=== PATIENT | female | born 2000 | race Caucasian/White ===

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

== ENCOUNTER → 2019-06-18 | Outpatient (REF) | payer OTHER | LOC: M SFHCLERA 09:37 | PROVIDERS: ATTEND Physician Assistant | DX: R30.0 Dysuria (principal) | CPT/HCPCS: 81002; 81025; 87088; 87186; G0463 ==

== ENCOUNTER → 2019-08-05 | Outpatient (REF) | payer OTHER ==
[2019-08-05 18:22] LABS: CHLAMYDIA DNA AMPLIFICATION NEGATIVE (NEGATIVE); GC DNA AMPLIFICATION NEGATIVE (NEGATIVE)
== END ==
LOC: M SFHCLERA 12:14
PROVIDERS: ATTEND Physician Assistant
DX: R30.0 Dysuria (principal); N89.8 Other specified noninflammatory disorders of vagina
CPT/HCPCS: 81002; 81025; 87086; 87661; G0463

== ENCOUNTER 2020-01-10 11:41 | Emergency (ER) | payer OTHER ==
[~2020-01-10] VITALS: Ht 165.1 cm; Wt 81.0 kg
[2020-01-10 11:42] VITALS: BP 138/84
[2020-01-10] MEDS ORDERED: KEFL500C17 PO (12:28)
== END 2020-01-10 12:43 | disposition home or self-care (01) ==
LOC: M ED 11:41
DX: J06.9 Acute upper respiratory infection, unspecified (principal); Z11.59 Encounter for screening for other viral diseases; Z20.828 Contact with and (suspected) exposure to other viral communicable diseases
CPT/HCPCS: 87486; 87581; 87633; 87798; 99283; C9803; U0003

== ENCOUNTER → 2021-01-10 | Outpatient (REF) | payer OTHER ==
[~2021-01-10] MED LIST: KEFL500C17 PO
== END ==
LOC: M WUC 15:57
PROVIDERS: ATTEND Physician Assistant
DX: R30.0 Dysuria (principal)

== ENCOUNTER 2021-03-13 09:34 | Emergency (ER) | payer OTHER ==
[~2021-03-13] VITALS: Ht 165.1 cm; Wt 76.0 kg
[2021-03-13] MEDS ORDERED: ONDA4TAB6 PO (09:41)
[2021-03-13] MEDS ORDERED: OMEP-221 PO (09:41)
[2021-03-13] MEDS ORDERED: NS 1,000 ML IV ONE (11:40)
[2021-03-13 12:15] LABS: BASO % 0.3 % (0.0-1.0); EOS # 0.1 10^3/uL (0.0-0.5); EOS % 0.4 % (0.0-3.0); HEMATOCRIT 39.2 % (36.0-47.0); HEMOGLOBIN 13.5 g/dl (12.0-15.5); LYMPH # 1.8 10^3/uL (1.5-5.0); LYMPH % 13.1 % (24.0-44.0); MEAN CORPUSCULAR HGB CONC 34.4 g/dl (32.0-36.5); MEAN CORPUSCULAR VOLUME 84.3 fl (80.0-96.0); MONO # 0.6 10^3/uL (0.0-0.8); MONO % 4.5 % (2.0-8.0); NEUTROPHILS # 11.3 10^3/uL (1.5-8.5); NEUTROPHILS % 81.4 % (36.0-66.0); PLATELET COUNT, AUTOMATED 305 10^3/uL (150-450); RED BLOOD COUNT 4.65 10^6/uL (4.00-5.40); WHITE BLOOD COUNT 13.9 10^3/uL (4.0-10.0)
--- NOTE | 2021-03-13 12:29 | REP ---
INDICATION: pelvic pain. COMPARISON: None. TECHNIQUE: Transabdominal obstetric sonography. FINDINGS: Scanning through the gravid uterus and urine filled bladder demonstrate a single living intrauterine gestation. The crown-rump length of the embryonic pole is 52 mm. This corresponds with a gestational age estimate of 11 weeks 6 days. heart rate is recorded at 170 beats per minute. No extra uterine abnormality is observed. IMPRESSION: Single living intrauterine gestation at 11 weeks 6 days by crown-rump length. ELYSIA by sonography 26 September 2021. No complication is identified <Electronically signed by Froilan Benton > 03/13/21 [id number]
[2021-03-13 12:44] LABS: ALBUMIN 4.2 GM/DL (3.2-5.2); ALT/SGPT 27 U/L (12-78); BILIRUBIN,DIRECT 0.2 MG/DL (0.0-0.2); BILIRUBIN,TOTAL 0.8 MG/DL (0.2-1.0); BLOOD UREA NITROGEN 4 MG/DL (7-18); CALCIUM LEVEL 9.5 MG/DL (8.5-10.1); CARBON DIOXIDE LEVEL 25 MEQ/L (21-32); CHLORIDE LEVEL 105 MEQ/L (98-107); CREATININE FOR GFR 0.53 MG/DL (0.55-1.30); GLOMERULAR FILTRATION RATE > 60.0 (>60); GLUCOSE, FASTING 74 MG/DL (70-100); LIPASE 68 U/L (73-393); POTASSIUM SERUM 4.1 MEQ/L (3.5-5.1); SODIUM LEVEL 138 MEQ/L (136-145); TOTAL PROTEIN 8.3 GM/DL (6.4-8.2)
[2021-03-13] MEDS ORDERED: cefTRIAXone SOD 1 GM in D5W MINI-BAG PLUS 50 ML IV ONE (13:30)
[2021-03-13] MEDS ORDERED: ACETAMINOPHEN 325 MG TAB PO ONE (13:30)
[2021-03-13] MEDS ORDERED: MACR100C43 PO (14:29)
[2021-03-13 14:34] VITALS: BP 118/65
[2021-03-13 14:47] LABS: GC DNA AMPLIFICATION NEGATIVE (NEGATIVE)
== END 2021-03-13 14:40 | disposition home or self-care (01) ==
LOC: M ED 09:34
DX: O23.41 Unspecified infection of urinary tract in pregnancy, first trimester (principal); O26.91 Pregnancy related conditions, unspecified, first trimester; R10.2 Pelvic and perineal pain; Z3A.11 11 weeks gestation of pregnancy; Z79.899 Other long term (current) drug therapy
CPT/HCPCS: 76801; 80048; 80076; 81001; 83690; 85025; 87088; 87186; 87210; 87661; 96361; 96365; 99284; J0696

== ENCOUNTER 2021-05-02 12:02 | Emergency (ER) | payer OTHER ==
[~2021-05-02] VITALS: Ht 165.1 cm; Wt 74.4 kg
[~2021-05-02 12:02] MED LIST changes: +MACR100C43 PO; +OMEP-221 PO; +ONDA4TAB6 PO
[2021-05-02] MEDS ORDERED: MULTTAB20 PO (12:42)
[2021-05-02 14:09] LABS: BASO % 0.3 % (0.0-1.0); EOS # 0.2 10^3/uL (0.0-0.5); EOS % 2.4 % (0.0-3.0); HEMATOCRIT 34.6 % (36.0-47.0); HEMOGLOBIN 11.9 g/dl (12.0-15.5); LYMPH # 1.5 10^3/uL (1.5-5.0); MEAN CORPUSCULAR HGB CONC 34.4 g/dl (32.0-36.5); MEAN CORPUSCULAR VOLUME 87.2 fl (80.0-96.0); MONO # 0.5 10^3/uL (0.0-0.8); MONO % 6.8 % (2.0-8.0); NEUTROPHILS # 4.9 10^3/uL (1.5-8.5); NEUTROPHILS % 69.2 % (36.0-66.0); PLATELET COUNT, AUTOMATED 251 10^3/uL (150-450); RED BLOOD COUNT 3.97 10^6/uL (4.00-5.40); WHITE BLOOD COUNT 7.1 10^3/uL (4.0-10.0)
[2021-05-02 14:44] LABS: CK-MB VALUE MASS < 1.0 NG/ML (<3.6); CPK CREATINE PHOSPHOKINASE 36 U/L (26-192); MB/CK RELATIVE INDEX 2.78 (< OR =4); TROPONIN I < 0.02 NG/ML (< 0.10)
[2021-05-02 15:07] LABS: APPEARANCE, URINE CLEAR (CLEAR); BACTERIA, URINE AUTO NEGATIVE (NEGATIVE); BILIRUBIN, URINE AUTO NEGATIVE (NEGATIVE); BLOOD, URINE BLOOD NEGATIVE (NEGATIVE); COLOR, URINE STRAW (YELLOW); GLUCOSE, URINE (UA) AUTO NEGATIVE (NEGATIVE); KETONE, URINE AUTO NEGATIVE (NEGATIVE); LEUKOCYTE ESTERASE, URINE AUTO NEGATIVE (NEGATIVE); NITRITE, URINE AUTO NEGATIVE (NEGATIVE); PROTEIN, URINE AUTO NEGATIVE (NEGATIVE); RBC, URINE AUTO 0 /HPF (0-3); SPECIFIC GRAVITY URINE AUTO 1.004 (1.002-1.035); SQUAMOUS EPITHELIAL CELL UR AU 0 /HPF (0-6); UROBILINOGEN, URINE AUTO 0.2 mg/dL (0.0-2.0); WBC, URINE AUTO 1 /HPF (0-3)
[2021-05-02 15:59] LABS: ALBUMIN 3.5 GM/DL (3.2-5.2); ALT/SGPT 27 U/L (12-78); BILIRUBIN,DIRECT 0.1 MG/DL (0.0-0.2); BILIRUBIN,TOTAL 0.4 MG/DL (0.2-1.0); MAGNESIUM LEVEL 1.8 MG/DL (1.8-2.4); TOTAL PROTEIN 7.2 GM/DL (6.4-8.2); URIC ACID 2.9 MG/DL (2.6-6.0)
[2021-05-02 17:37] VITALS: BP 141/68
--- NOTE | 2021-05-02 19:44 | ECGEPIP ---
[facility] - ED Test Date: 2021-05-02 Pat Name: IVETH EDOUARD Department: Room: - Gender: Female Crisis Mental Health Therapist: RHETT : 2000 Requested By: ELDA Nunez PA-C Order Number: [id number] Reading MD: Fouzia Sebastian Measurements Intervals [place] Rate: 94 P: 32 [place]: 150 QRS: 31 QRSD: 90 T: 24 QT: 376 QTc: 470 Interpretive Statements Normal sinus rhythm Possible Left atrial enlargement RSR' or QR pattern in V1 suggests right ventricular conduction delay Nonspecific ST T wave changes No prior ECG for comparison Electronically Signed on 05-02-2021 19:44:19 EDT by Fouzia Sebastian
== END 2021-05-02 17:40 | disposition home or self-care (01) ==
LOC: M ED 12:02
DX: O99.419 Diseases of the circulatory system complicating pregnancy, unspecified trimester (principal); Z3A.18 18 weeks gestation of pregnancy; R00.2 Palpitations

== ENCOUNTER 2021-07-12 01:22 | Inpatient (IN) | payer OTHER ==
[~2021-07-12] VITALS: Ht 165.1 cm; Wt 86.7 kg
[2021-07-12] VITALS (22 sets, daily range): BP systolic 116–166; BP diastolic 59–97
[~2021-07-12 01:22] MED LIST changes: +MULTTAB20 PO
[2021-07-12] MEDS ORDERED: BENA25CA4 PO (01:59)
[2021-07-12] MEDS ORDERED: HOME MED LIST COMPLETE! XX SCH (02:00)
[2021-07-12 02:10] LABS: HEMATOCRIT 31.2 % (36.0-47.0); HEMOGLOBIN 10.6 g/dl (12.0-15.5); MEAN CORPUSCULAR HEMOGLOBIN 29.9 pg (27.0-33.0); MEAN CORPUSCULAR VOLUME 87.9 fl (80.0-96.0); PLATELET COUNT, AUTOMATED 292 10^3/uL (150-450); RED BLOOD COUNT 3.55 10^6/uL (4.00-5.40); WHITE BLOOD COUNT 15.1 10^3/uL (4.0-10.0)
[2021-07-12] MEDS ORDERED: LR 1,000 ML IV SCH ×2 (02:15→23:15)
[2021-07-12] MEDS ORDERED: MORPHINE 2 MG/ML 1ML VIAL (J2270) IV ONE (02:15)
[2021-07-12] MEDS ORDERED: LR 1,000 ML IV ONE (02:15)
[2021-07-12 02:48] LABS: ALBUMIN 3.2 GM/DL (3.2-5.2); ALT/SGPT 16 U/L (12-78); BILIRUBIN,TOTAL 0.2 MG/DL (0.2-1.0); BLOOD UREA NITROGEN 9 MG/DL (7-18); CALCIUM LEVEL 9.6 MG/DL (8.5-10.1); CARBON DIOXIDE LEVEL 27 MEQ/L (21-32); CHLORIDE LEVEL 108 MEQ/L (98-107); CREATININE FOR GFR 0.67 MG/DL (0.55-1.30); GLOMERULAR FILTRATION RATE > 60.0 (>60); GLUCOSE, FASTING 92 MG/DL (70-100); POTASSIUM SERUM 4.1 MEQ/L (3.5-5.1); SODIUM LEVEL 141 MEQ/L (136-145); TOTAL PROTEIN 7.1 GM/DL (6.4-8.2)
[2021-07-12] MEDS ORDERED: cefTRIAXone SOD 1 GM in D5W MINI-BAG PLUS 50 ML IV SCH (03:00)
--- NOTE | 2021-07-12 03:03 | HPEPDOC ---
Obstetrical History & Physical General Date of Admission 07/12/2021 Primary Care Physician: HETAL MALDONADO DO History of Present Illness 20yo G1 at 28+6 with history of frequent UTIs on macrobid prophylaxis presents for worsening flank pain, chills and dysuria. Endorses subjective fever. Denies hematuria. Denies headaches, vision changes, shortness of breath, right upper quadrant or epigastric pain. Care Care: Good Care Dating Final EDC: Sep 28, 2021 Final EDC by: 1st trimester (US) Antepartum Course Height (inches): 65 Pre- weight (lbs.): 176 Admission Weight (lbs.): 190 Change in Weight (lbs.): 14 Past Medical History Past Obstetrical History : Past Obstetrical History: Primgravida Past Medical History Medical History frequent UTI 3-4/year outside of , currently on macrobid prophylaxis GERD exercise-induced asthma Surgical History: Other (wisdom teeth extraction) Family History Family History father: hypertension MGM: skin cancer, stroke PGM: lung CA PGF: alcoholism Social History Marital Status: Family situation: Spouse/partner home Psychosocial History: Other (depression/anxiety with history of cutting) * Smoker: non-smoker Alcohol: Denies Drugs: denies Abuse Violence Screening Have you been hit/kicked/slapp: No Have you been sexually assault: No Imunizations Tdap status: current Allergies Coded Allergies: No Known Allergies (Unverified , 01/10/20) Medications Scheduled Diphenhydramine HCl (Benadryl) 25 Mg Capsule, 2 CAP PO QPM Nitrofurantoin Monohyd/M-Cryst (Macrobid 100 mg Capsule) 100 Mg Capsule, 100 MG PO BID Omeprazole (Omeprazole) 40 Mg Capsule.dr, 1 CAP PO DAILY No122/Iron/Folic Acid ( Multi Tablet) 1 Each Tablet, 1 TAB PO DAILY Physical Examination Physical Examination GENERAL: Alert and oriented times three. Grimacing in pain, moving around in the bed. ABDOMEN: Gravid and non-tender to touch. MSK: right sided CVA tenderness HEART RATE: tachycardic LUNGS: Clear to auscultation (CTA). EXTREMITIES: No edema. Vital Signs/I&O Vital Signs Date Time Temp Pulse Resp B/P (MAP) Pulse Ox O2 Delivery O2 Flow Rate FiO2 07/12/21 01:49 118 166/95 (118) 07/12/21 01:47 98.2 18 Laboratory Data 24H LABS Laboratory Tests 2 07/12/21 01:45: Urine Color YELLOW, Urine Appearance HAZY, Urine pH 7.0, Urine Specific [place] 1.013, Urine Protein 2+H, Urine Glucose (UA) NEGATIVE, Urine Ketones NEGATIVE, Urine Blood NEGATIVE, Urine Nitrite NEGATIVE, Urine Bilirubin NEGATIVE, Urine Urobilinogen 0.2, Urine Leukocyte Esterase TRACEH, Urine WBC (Auto) 17H, Urine RBC (Auto) 4H, Urine Hyaline Casts (Auto) 0, Urine Bacteria (Auto) NEGATIVE, U rine Squamous Epithelial Cells 4, Urine Amorphous Sediment SMALLH, Urine Mucus (Auto) SMALL, Urine Sperm (Auto) 07/12/21 02:04: Nucleated Red Blood Cells % (auto) 0.0 CBC/BMP Laboratory Tests 07/12/21 02:04 Microbiology Microbiology 07/12/21 Urine Culture, Received Pending Pertinent Laboratoy Data Blood Type: B+ RBC Antibody Screen: Negative HIV: Negative Hepatitis B: Negative Rapid Plasma Reagin: Nonreactive Rubella: Immune Varicella: Immune Chlamydia/Gonorrhea: Negative Quad Screen Test: Negative Cystic Fibrosis: Negative Glucose Tolerance Test: 175 Anatomy Ultrasound Ultrasound Date: May 11, 2021 Placenta Location: Anterior Normal Anatomy: Yes Placenta Previa: No Steroid Therapy Steroid Therapy: No Tocometer Contractions: No Multi-drug resistant Organism: No history of MDRO Assessment/Plan Assessment Pamela Yanez is a 20-year-old G1 at 28+6 weeks by 9-week ultrasound. Presents to Labor and Delivery for chills, flank pain and dysuria with history of frequent UTIs on macrobid prophylaxis. Right costovertebral tenderness on exam, WBC 15 and pyuria on urinalysis. No blood on urinalysis, patient denies hematuria. Creatinine 0.67 on CMP. Renal ultrasound pending. Severe range pressures on admission, however she was writhing in the bed; blood pressure 120s/60s after pain control achieved. No signs or symptoms of preeclampsia. Plan -ceftriaxone 1g q24h until afebrile for 24 hours, she will then need a course of oral antibiotics, likely 14 days -monitor urine output hourly, maintain >30mg/kg/hr -q4h vitals -renal ultrasound pending -radiology BPP pending, if >=8 then BID NSTs -LR 1000mL bolus and then at 125mL/hr -tylenol 975mg q6h scheduled - morphine 2mg IV q4h prn for pain 7-10 -repeat labs 24 hours Labor and Delivery Counseling Counseled patient on admission and treatment with IV antibiotics, delivery not anticipated at this time. HETAL MALDONADO. DO Jul 12, 2021 02:47
[2021-07-12] MEDS ORDERED: MORPHINE 2 MG/ML 1ML VIAL (J2270) IV PRN (03:05)
--- OUTSIDE RECORDS SUMMARY | 2021-07-12 03:19 | CCD ---
Author Organization Unknown Address [address] [place] [address] Phone [phone] Care Team Providers Care Knitted Cloth Examiner Name Role Phone 238 Nurse_adult Unavailable Unavailable Allergies None recorded. Medications Name Status Start Date Stop Date fluconazole 150 mg tablet TAKE 1 TABLET BY MOUTH MAY REPEAT IN 3 5 DAYS IF NEEDED Active Not available nitrofurantoin monohydrate/macrocrystals 100 mg capsule TAKE 1 CAPSULE BY MOUTH TWICE DAILY Active Not available ondansetron HCl 4 mg tablet TAKE 1 TABLET BY MOUTH 4 TIMES DAILY NEEDED Active Not available Problems None recorded. Procedures None recorded. Results Lab Results Date Name Specimen Result Interpretation Description Value Range Status Address 06/01/2021 SARS CoV 2 RdRp Gene, QL Probe, Respiratory Specimen ABNORMAL Sars-cov-2 positive negative Final [facility] don: [address] [facility] 05/04/2021 SARS CoV 2 RdRp Gene, QL Probe, Respiratory Spec imen Nasopharyngeal Normal Sars-cov-2 negative negative Final [facility] Medical: [address] [place] [address] 02/28/2021 MMR Immunity, Serum Normal Measles Ab (IgG), Immune Status >300.00 AU/mL Final [facility]: [address], [place] Normal Mumps Virus Ab (IgG), Immune Status >300.00 AU/mL Final [facility]: [address], [place] Normal Rubella Ab (IgG), Immune Status 5.34 index Final [facility]: [address], [place] Past Encounters 06/01/2021 Exposure to SARS-CoV-2 Kaleb Huerta MD: [address] [place] [address], Ph. 05/04/2021 Exposure to SARS-CoV-2 Kaleb Huerta MD: [address] [place] [phone], Ph. 04/13/2021 Administration of SARS-CoV-2 Antigen Vaccine Kaleb Huerta MD: [address] [place] [address], Ph. 03/24/2021 Administration of SARS-CoV-2 Antigen Vaccine Kaleb Huerta MD: [address] [place] [address], Ph. 02/28/2021 Kaleb Huerta MD: [address] [place] [address], Ph. Social History None recorded. Vaccine List Vaccine Type COVID-19, mRNA, LNP-S, PF, 30 mcg/0.3 mL dose .3 mL .3 mL Plan of Care Reminders Provider Appointments None recorded. Lab None recorded. Referral None recorded. Procedures None recorded. Surgeries None recorded. Imaging None recorded. Vitals None recorded.
--- OUTSIDE RECORDS SUMMARY | 2021-07-12 03:19 | CCD ---
Author Organization Unknown Address [address] [place] [address] Phone [phone] Care Team Providers Care Quality Lab Technician Name Role Phone 238 Nurse_adult Unavailable Unavailable [...] Result Interpretation Description Value Range Status Address 05/04/2021 SARS CoV 2 RdRp Gene, QL Probe, Respiratory Spec imen Nasopharyngeal Normal Sars-cov-2 negative negative Final [facility] Medical: [address] [facility] 02/28/2021 MMR Immunity, Serum Normal Measles Ab (IgG), Immune Status >300.00 AU/mL Final [facility]: [address] [facility] Normal Mumps Virus Ab (IgG), Immune Status >300.00 AU/mL Final [facility]: [address] [facility] Normal Rubella Ab (IgG), Immune Status 5.34 index Final [facility]: [address] [facility] Past Encounters 05/04/2021 Exposure to SARS-CoV-2 Kaleb Huerta MD: [address] [place] [address], Ph. 04/13/2021 SARS-CoV-2 Vaccination Kaleb Huerta MD: [address] [place] [address], Ph. 03/24/2021 SARS-CoV-2 Vaccination Kaleb Huerta MD: [address] [place] [address], Ph. 02/28/2021 Kaleb Huerta MD: [address] [place] [phone], Ph. Social History None recorded. Vaccine List Vaccine Type COVID-19, mRNA, LNP-S, PF, 30 mcg/0.3 mL dose .3 mL .3 mL Plan of Care Reminders Provider Appointments None recorded. Lab None recorded. Referral None recorded. Procedures None recorded. Surgeries None recorded. Imaging None recorded. Vitals None recorded.
--- OUTSIDE RECORDS SUMMARY | 2021-07-12 03:19 | CCD ---
Author Author [facility] Organization [facility] Address Unknown Phone Unavailable Care Team Providers Care Replanter Name Role Phone Florencio Huerta MD Unavailable Unavailable Florencio Huerta MD Unavailable Unavailable Florencio Huerta MD Unavailable Unavailable Florencio Huerta MD Unavailable Unavailable Florencio Huerta MD Unavailable Unavailable Florencio Huerta MD Unavailable Unavailable Florencio Huerta MD Unavailable Unavailable Florencio Huerta MD Unavailable Unavailable Florencio Huerta MD Unavailable Unavailable Florencio Huerta MD Unavailable Unavailable Florencio Huerta MD Unavailable Unavailable Florencio Huerta MD Unavailable Unavailable Florencio Huerta MD Unavailable Unavailable Florencio Huerta MD Unavailable Unavailable Florencio Huerta MD Unavailable Unavailable Florencio Huerta MD Unavailable Unavailable Florencio Huerta MD Unavailable Unavailable Florencio Huerta MD Unavailable Unavailable Florencio Huerta MD Unavailable Unavailable Florencio Huerta MD Unavailable Unavailable Florencio Huerta MD Unavailable Unavailable Florencio Huerta MD Unavailable Unavailable Florencio Huerta MD Unavailable Unavailable Florencio Huerta MD Unavailable Unavailable Florencio Huerta MD Unavailable Unavailable Florencio Huerta MD Unavailable Unavailable Florencio Huerta MD Unavailable Unavailable Florencio Huerta MD Unavailable Unavailable Florencio Huerta MD Unavailable Unavailable Florencio Huerta MD Unavailable Unavailable Florencio Huerta MD Unavailable Unavailable Florencio Huerta MD Unavailable Unavailable Florencio Huerta MD Unavailable Unavailable Florencio Huerta MD Unavailable Unavailable Florencio Huerta MD Unavailable Unavailable Florencio Huerta MD Unavailable Unavailable Florencio Huerta MD Unavailable Unavailable Florencio Huerta MD Unavailable Unavailable Florencio Huerta MD Unavailable Unavailable Florencio Huerta MD Unavailable Unavailable Florencio Huerta MD Unavailable Unavailable Florencio Huerta MD Unavailable Unavailable Florencio Huerta MD Unavailable Unavailable Florencio Huerta MD Unavailable Unavailable Florencio Huerta MD Unavailable Unavailable Florencio Huerta MD Unavailable Unavailable Florencio Huerta MD Unavailable Unavailable Florencio Huerta MD Unavailable Unavailable Florencio Huerta MD Unavailable Unavailable Florencio Huerta MD Unavailable Unavailable Florencio Huerta MD Unavailable Unavailable Florencio Huerta MD Unavailable Unavailable Florencio Huerta MD Unavailable Unavailable Florencio Huerta MD Unavailable Unavailable Florencio Huerta MD Unavailable Unavailable Florencio Huerta MD Unavailable Unavailable Florencio Huerta MD Unavailable Unavailable Florencio Huerta MD Unavailable Unavailable Florencio Huerta MD Unavailable Unavailable Florencio Huerta MD Unavailable Unavailable Florencio Huerta MD Unavailable Unavailable Florencio Huerta MD Unavailable Unavailable Florencio Huerta MD Unavailable Unavailable Florencio Huerta MD Unavailable Unavailable Florencio Huerta MD Unavailable Unavailable Florencio Huerta MD Unavailable Unavailable Florencio Huerta MD Unavailable Unavailable Florencio Huerta MD Unavailable Unavailable Florencio Huerta MD Unavailable Unavailable Florencio Huerta MD Unavailable Unavailable Florencio Huerta MD Unavailable Unavailable Florencio Huerta MD Unavailable Unavailable Florencio Huerta MD Unavailable Unavailable Florencio Huerta MD Unavailable Unavailable Florencio Huerta MD Unavailable Unavailable Florencio Huerta MD Unavailable Unavailable Florencio Huerta MD Unavailable Unavailable Florencio Huerta MD Unavailable Unavailable Florencio Huerta MD Unavailable Unavailable Florencio Huerta MD Unavailable Unavailable Florencio Huerta MD Unavailable Unavailable Florencio Huerta MD Unavailable Unavailable Florencio Huerta MD Unavailable Unavailable Florencio Huerta MD Unavailable Unavailable Florencio Huerta MD Unavailable Unavailable Florencio Huerta MD Unavailable Unavailable Florencio Huerta MD Unavailable Unavailable Florencio Huerta MD Unavailable Unavailable Florencio Huerta MD Unavailable Unavailable Florencio Huerta MD Unavailable Unavailable Florencio Huerta MD Unavailable Unavailable Florencio Huerta MD Unavailable Unavailable Florencio Huerta MD Unavailable Unavailable ISABELA, JUAN PA Unavailable Unavailable ISABELA, JUAN PA Unavailable Unavailable ISABELA, JUAN PA Unavailable Unavailable ISABELA, JUAN PA Unavailable Unavailable ISABELA, JUAN PA Unavailable Unavailable ISABELA, JUAN PA Unavailable Unavailable ISABELA, JUAN PA Unavailable Unavailable ISABELA, JUAN PA Unavailable Unavailable ISABELA, JUAN PA Unavailable Unavailable ISABELA, JUAN PA Unavailable Unavailable ISABELA, JUAN PA Unavailable Unavailable ISABELA, JUAN PA Unavailable Unavailable ISABELA, JUAN PA Unavailable Unavailable ISABELA, JUAN PA Unavailable Unavailable ISABELA, JUAN PA Unavailable Unavailable Pola Estrella MD Unavailable Unavailable Susan, Pola PEREZ Unavailable Unavailable Estrella, Pola PEREZ Unavailable Unavailable Estrella, Pola PEREZ Unavailable Unavailable Estrella, Pola PEREZ Unavailable Unavailable Estrella, Pola PEREZ Unavailable Unavailable SHOLA, LAURA PA Unavailable Unavailable SHOLA, LAURA PA Unavailable Unavailable SHOLA, LAURA PA Unavailable Unavailable SHOLA, LAURA PA Unavailable Unavailable SHOLA, LAURA PA Unavailable Unavailable SHOLA, LAURA PA Unavailable Unavailable SHOLA, LAURA PA Unavailable Unavailable SHOLA, LAURA PA Unavailable Unavailable SHOLA, LAURA PA Unavailable Unavailable SHOLA, LAURA PA Unavailable Unavailable SHOLA, LAURA PA Unavailable Unavailable SHOLA, LAURA PA Unavailable Unavailable SHOLA, LAURA PA Unavailable Unavailable SHOLA, LAURA PA Unavailable Unavailable SHOLA, LAURA PA Unavailable Unavailable SHOLA, LAURA PA Unavailable Unavailable SHOLA, LAURA PA Unavailable Unavailable SHOLA, LAURA PA Unavailable Unavailable SHOLA, LAURA PA Unavailable Unavailable SHOLA, LAURA PA Unavailable Unavailable SHOLA, LAURA PA Unavailable Unavailable SHOLA, LAURA PA Unavailable Unavailable SHOLA, LAURA PA Unavailable Unavailable SHOLA, LAURA PA Unavailable Unavailable SHOLA, LAURA PA Unavailable Unavailable SHOLA, LAURA PA Unavailable Unavailable SHOLA, LAURA PA Unavailable Unavailable SHOLA, LAURA PA Unavailable Unavailable SHOLA, LAURA PA Unavailable Unavailable SHOLA, LAURA PA Unavailable Unavailable SHOLA, LAURA PA Unavailable Unavailable SHOLA, LAURA PA Unavailable Unavailable SHOLA, LAURA PA Unavailable Unavailable SHOLA, LAURA PA Unavailable Unavailable SHOLA, LAURA PA Unavailable Unavailable SHOLA, LAURA PA Unavailable Unavailable ALEKS, L JULIO PA Unavailable Unavailable ALEKS, L JULIO PA Unavailable Unavailable ALEKS, L JULIO PA Unavailable Unavailable ALEKS, L JULIO PA Unavailable Unavailable ALEKS, L JULIO PA Unavailable Unavailable ALEKS, L JULIO PA Unavailable Unavailable ALEKS, L JULIO PA Unavailable Unavailable ALEKS, L JULIO PA Unavailable Unavailable ALEKS, L JULIO PA Unavailable Unavailable ALEKS, L JULIO PA Unavailable Unavailable ALEKS, L JULIO PA Unavailable Unavailable ALEKS, L JULIO PA Unavailable Unavailable ALEKS, L JULIO PA Unavailable Unavailable ALEKS, L JULIO PA Unavailable Unavailable ALEKS, L JULIO PA Unavailable Unavailable ALEKS, L JULIO PA Unavailable Unavailable ALEKS, L JULIO PA Unavailable Unavailable ALEKS, L JULIO PA Unavailable Unavailable ALEKS, L JULIO PA Unavailable Unavailable ALEKS, L JULIO PA Unavailable Unavailable ALEKS, L JULIO PA Unavailable Unavailable ALEKS, L JULIO PA Unavailable Unavailable DOYLE, [facility] Unavailable Unavailable ALEKS, L JULIO PA Unavailable Unavailable ALEKS, L JULIO PA Unavailable Unavailable ALEKS, L JULIO PA Unavailable Unavailable ALEKS, L JULIO PA Unavailable Unavailable ALEKS, L JULIO PA Unavailable Unavailable ALEKS, L JULIO PA Unavailable Unavailable ALEKS, L JULIO PA Unavailable Unavailable ALEKS, L JULIO PA Unavailable Unavailable ALEKS, L JULIO PA Unavailable Unavailable ALEKS, L JULIO PA Unavailable Unavailable ALEKS, L JULIO PA Unavailable Unavailable ALEKS, L JULIO PA Unavailable Unavailable ALEKS, L JULIO PA Unavailable Unavailable ALEKS, L JULIO PA Unavailable Unavailable ALEKS, L JULIO PA Unavailable Unavailable ALEKS, L JULIO PA Unavailable Unavailable ALEKS, L JULIO PA Unavailable Unavailable ALEKS, L JULIO PA Unavailable Unavailable ALEKS, L JULIO PA Unavailable Unavailable ALEKS, L JULIO PA Unavailable Unavailable ALEKS, L JULIO PA Unavailable Unavailable ALEKS, L JULIO PA Unavailable Unavailable Re-disclosure Warning The records that you are about to access may contain information from federally-assisted alcohol or drug abuse programs. If such information is present, then the following federally mandated warning applies: This information has been disclosed to you from records protected by federal confidentiality rules (42 CFR part 2). The federal rules prohibit you from making any further disclosure of this information unless further disclosure is expressly permitted by the written consent of the person to whom it pertains or as otherwise permitted by 42 CFR part 2. A general authorization for the release of medical or other information is NOT sufficient for this purpose. The Federal rules restrict any use of the information to criminally investigate or prosecute any alcohol or drug abuse patient.The records that you are about to access may contain highly sensitive health information, the redisclosure of which is protected by Article 27-F of the [facility] Public Health law. If you continue you may have access to information: Regarding HIV / AIDS; Provided by facilities licensed or operated by the [facility] Office of Mental Health; or Provided by the [facility] Office for People With Developmental Disabilities. If such information is present, then the following [facility] mandated warning applies: This information has been disclosed to you from confidential records which are protected by state law. State law prohibits you from making any further disclosure of this information without the specific written consent of the person to whom it pertains, or as otherwise permitted by law. Any unauthorized further disclosure in violation of state law may result in a fine or usp sentence or both. A general authorization for the release of medical or other information is NOT sufficient authorization for further disc losure. Allergies and Adverse Reactions Type Description Substance Reaction Status Data Source(s ) Allergy to substance Allergy to substance Allergy to substance [facility] ([facility]) Allergy to substance Allergy to substance Allergy to substance [facility] ([facility]) Allergy to substance Allergy to substance Allergy to substance [facility] ([facility]) Allergy to substance Allergy to substance Allergy to substance [facility] ([facility]) Allergy to substance Allergy to substance Allergy to substance [facility] ([facility]) Encounters Encounter Providers Location Date Indications Data Source(s ) Kaleb Huerta MD: [address] [place] [phone], Ph. Attender: Kaleb Huerta MD [facility] Medical 06/01/2021 12:00:00 AM EDT [facility] ([facility]) Kaleb Huerta MD: [address] [place] [phone], Ph. Attender: Kaleb Huerta MD [facility] Medical 06/01/2021 12:00:00 AM EDT [facility] ([facility]) Kaleb Huerta MD: [address] [place] [phone], Ph. Attender: Kaleb Huerta MD [facility] Medical 05/04/2021 12:00:00 AM EDT [facility] ([facility]) Kaleb Huerta MD: [address] [place] [address], Ph. Attender: Kaleb Huerta MD [facility] Medical 05/04/2021 12:00:00 AM EDT [facility] ([facility]) Kaleb Huerta MD: [address] [place] [address]3 [address], Ph. Attender: Kaleb Huerta MD [facility] Medical 05/04/2021 12:00:00 AM EDT [facility] ([facility]) Kaleb Huerta MD: [address] [place] [address], Ph. Attender: Kaleb Huerta MD [facility] Medical 05/04/2021 12:00:00 AM EDT [facility] ([facility]) Kaleb Huerta MD: [address] [place] [address], Ph. Attender: Kaleb Huerta MD [facility] Medical 04/13/2021 12:00:00 AM EDT [facility] ([facility]) Kaleb Huerta MD: [address] [place] [phone], Ph. Attender: Kaleb Huerta MD [facility] Medical 04/13/2021 12:00:00 AM EDT [facility] ([facility]) Kaleb Huerta MD: [address] [place] [address], Ph. Attender: Kaleb Huerta MD [facility] Medical 04/13/2021 12:00:00 AM EDT [facility] ([facility]) Kaleb Huerta MD: [address] [place] [address]1 504, Ph. Attender: Kaleb Huerta MD [facility] Medical 04/13/2021 12:00:00 AM EDT [facility] ([facility]) Kaleb Huerta MD: [address] [place] [address], Ph. Attender: Kaleb Huerta MD [facility] Medical 03/24/2021 12:00:00 AM EDT [facility] ([facility]) Kaleb Huerta MD: [address] [place] [address], Ph. Attender: Kaleb Huerta MD [facility] Medical 03/24/2021 12:00:00 AM EDT [facility] ([facility]) Kaleb Huerta MD: [address] [place] [address]8 [address], Ph. Attender: Kaleb Huerta MD [facility] Medical 03/24/2021 12:00:00 AM EDT [facility] ([facility]) Kaleb Huerta MD: [address] [place] [address], Ph. Attender: Kaleb Huerta MD [facility] Medical 03/24/2021 12:00:00 AM EDT [facility] ([facility]) Emergency Attender: Pola Estrella MDConsultant: CLINIC DOYLE 03/08/2021 08:51:00 PM EDT - 03/08/2021 11:06:00 PM EDT [facility] Patient discharged. Kaleb Huerta MD: [address] [place] [address], Ph. Attender: Kaleb Huerta MD [facility] Medical 02/28/2021 12:00:00 AM EDT [facility] ([facility]) Kaleb Huerta MD: [address] [place] [address], Ph. Attender: Kaleb Huerta MD [facility] Medical 02/28/2021 12:00:00 AM EDT [facility] ([facility]) Kaleb Huerta MD: [address] [place] [address]0 [address], Ph. Attender: Kaleb Huerta MD [facility] Medical 02/28/2021 12:00:00 AM EDT [facility] ([facility]) Kaleb Huerta MD: [address] [place] [address], Ph. Attender: Kaleb Huerta MD [facility] Medical 02/28/2021 12:00:00 AM EDT [facility] ([facility]) Kaleb Huerta MD: [address] [place] [address]8 [address], Ph. Attender: Kaleb Huerta MD [facility] Medical 02/28/2021 12:00:00 AM EDT [facility] ([facility]) Outpatient Attender: LAURA Parson ry 01/10/2021 11:00:00 AM EDT [facility] ([facility]) Outpatient Attender: JULIO CANALES 07/20 03:58:00 PM EST - 08/06/2020 03:58:00 PM EST [facility] Outpatient Attender: JULIO CANALES Family Practice 07/20 03:20:00 PM EST [facility] ([facility] Emergency Attender: JUAN CANALES 03/19 06:23:00 PM EDT - 03/19/2012 07:25:00 PM EDT [facility] Immunizations Vaccine Date Status Description Data Source(s) COVID-19, mRNA, LNP-S, PF, 30 mcg/0.3 mL dose 04/13/2021 02: 54:23 PM EDT completed .3 mL [facility] ([facility]) COVID-19, mRNA, LNP-S, PF, 30 mcg/0.3 mL dose 04/13/2021 02: 54:23 PM EDT completed .3 mL [facility] ([facility]) COVID-19, mRNA, LNP-S, PF, 30 mcg/0.3 mL dose 04/13/2021 02: 54:23 PM EDT completed .3 mL [facility] ([facility]) COVID-19, mRNA, LNP-S, PF, 30 mcg/0.3 mL dose 04/13/2021 02: 54:23 PM EDT completed .3 mL [facility] ([facility]) COVID-19 VACCINE Pfizer 04/13/2021 12:00:00 AM EDT completed [facility] Vaccine Series Complete: YESThis Data wa s Submitted to [facility] Via [employer]. COVID-19, mRNA, LNP-S, PF, 30 mcg/0.3 mL dose 03/24/2021 01: 47:37 PM EDT completed .3 mL [facility] ([facility]) COVID-19, mRNA, LNP-S, PF, 30 mcg/0.3 mL dose 03/24/2021 01: 47:37 PM EDT completed .3 mL [facility] ([facility]) COVID-19, mRNA, LNP-S, PF, 30 mcg/0.3 mL dose 03/24/2021 01: 47:37 PM EDT completed .3 mL [facility] ([facility]) COVID-19, mRNA, LNP-S, PF, 30 mcg/0.3 mL dose 03/24/2021 01: 47:37 PM EDT completed .3 mL [facility] ([facility]) COVID-19 VACCINE Pfizer 03/24/2021 12:00:00 AM EDT completed [employer] Vaccine Series Complete: NOThis Data was Submitted to [facility] [employer]. Medications Medication Brand Name Start Date Product Form Dose Route Admi nistrative Instructions Pharmacy Instructions Status Indications Reaction Description Data Source(s) Fluconazole 150 MG Oral Tablet [Diflucan] Diflucan 01/10/2021 1 2:00:00 AM EDT ORAL active [facility] ([facility], [facility]) Insurance Providers Payer name Policy type / Coverage type Policy ID Covered libertarian ID Covered libertarian's relationship to tobar Policy Tobar Plan Information [employer] [id number] [place] [id number] 01 [id number] [place] [id number] 18 [id number] [place] [employer] [place] UNA[place] 01 [facility] [id number] CHILD [id number] [employer] [id number] SP [id number] [employer] [id number] FA2 [id number] ANSI-Not a Secondary Insurance [id number] ANSI-Not a Secondary Insurance [id number] Problems, Conditions, and Diagnoses Code Display Name Description Problem Type Effective Dates Data Source(s) [id number] 11 weeks gestation of 11 weeks gestation of Diagnosis 03/08/2021 08:51:00 PM EDT [facility] R1030 Lower abdominal pain, unspecified Lower abdomina l pain, unspecified Diagnosis 03/08/2021 08:51:00 PM EDT [facility] [id number] Other specified related condit ions, first trimester Other specified related conditions, first trimester Diagnosis 03/08/2021 08:51:00 PM EDT [facility] [id number] Diseases of the respiratory system complicating , first trimester Diseases of the respiratory system compl icating , first trimester Diagnosis 03/08/2021 08:51:00 PM EDT [facility] [id number] Unspecified asthma, uncomplicated Unspecified as thma, uncomplicated Diagnosis 03/08/2021 08:51:00 PM EDT [facility] R197 Diarrhea, unspecified Diarrhea, unspecified Diagnosis 03/08/2021 08:51:00 PM EDT [facility] O219 Vomiting of , unspecified Vomiting of p regnancy, unspecified Diagnosis 03/08/2021 08:51:00 PM EDT [facility] Z1159 Encounter for screening for other viral diseases Encounter for screening for other viral diseases Diagnosis 08/06/2020 03:58:00 PM [facility] Surgeries/Procedures No Information Results ID Date Data Source [id number] 06/01/2021 10:50:00 AM EDT [facility]) Name Value Range Interpretation Code Description Data Deena rce(s) Supporting Document(s) sars-cov-2 positive negative Abnormal (applies to non-num kenya results) Sars-cov-2 [facility]) ID Date Data Source [id number] 06/01/2021 10:50:00 AM EDT [facility] ([facility]) Name Value Range Interpretation Code Description Data Deena rce(s) Supporting Document(s) sars-cov-2 positive negative Abnormal (applies to non-num kenya results) Sars-cov-2 [facility] ([facility]) ID Date Data Source [id number] 06/01/2021 10:34:00 AM EDT [facility] Name Value Range Interpretation Code Description Data Deena rce(s) Supporting Document(s) SARS coronavirus 2 RdRp gene [Presence] in Respiratory specimen by CABRERA with probe detection Detected [facility] This lab was ordered by [facility] and reported by [facility]. ID Date Data Source [id number] 05/04/2021 08:53:00 AM EDT [facility]) Name Value Range Interpretation Code Description Data Deena rce(s) Supporting Document(s) sars-cov-2 negative negative Sars-cov-2 [facility] ([facility]) ID Date Data Source [id number] 05/04/2021 08:53:00 AM EDT [facility]) Name Value Range Interpretation Code Description Data Deena rce(s) Supporting Document(s) sars-cov-2 negative negative Sars-cov-2 [facility] ([facility]) ID Date Data Source [id number] 05/04/2021 08:53:00 AM EDT [facility] ([facility]) Name Value Range Interpretation Code Description Data Deena rce(s) Supporting Document(s) sars-cov-2 negative negative Sars-cov-2 [facility]) ID Date Data Source [id number] 05/04/2021 08:53:00 AM EDT [facility]) Name Value Range Interpretation Code Description Data Deena rce(s) Supporting Document(s) sars-cov-2 negative negative Sars-cov-2 [facility] ([facility]) ID Date Data Source [id number] 05/04/2021 08:40:00 AM EDT [facility] Name Value Range Interpretation Code Description Data Deena rce(s) Supporting Document(s) SARS coronavirus 2 RdRp gene [Presence] in Respiratory specimen by CABRERA with probe detection Not detected [facility] This lab was ordered by [facility] and reported by [facility]. ID Date Data Source [id number] 03/08/2021 08:51:00 PM EDT [facility] 1 OrderSheet [facility] Emergency Department [address] [place] [address] Phone #: ext- [phone] 03/08/2021 20:50 Patient: IVETH LAO Sex: F : 2000 Age: 20yWEIGHT:76.2 kg (S)ALLERGIES: NKACHIEF COMPLAINT: vomiting, diarrheaDIAGNOSIS: Vomiting, DiarrheaLAB ORDERSOrder Description Priority Entered Acknowledged InitialedUrinalysis (Clean STAT 21:10 03/08/2021 21:37 Jil,Catch) Pola Estrella ; Kathe WillardBeta-HCG, Qual STAT 21:10 03/08/2021 21:37 JilUrine Pola Estrella ; Kathe Sykes.MarianoBMP STAT 21:11 03/08/2021 21:37 Susan Ley Jack ; Kathe WillardCBC w Diff STAT 21:11 03/08/2021 21:37 Susan Ley Jack ; Kathe WillardDIAGNOSTIC STUDY ORDERSOrder Description Priority Entered Acknowledged InitialedUS RENAL STAT 21:48 03/08/2021 21:50 Sorbero,COMPLETE Pola Estrella ; Compa Willard(Oxygen?(No))(IV?(No)) Reason for Study: left flank painMEDICATION/IV/DRIP/FLUID ORDERSOrder Description Priority Entered Acknowledged InitialedNS IV 1000 mL 21:10 03/08/2021 21:38 Jil,Bolus: : Bolus 1000 Pola Estrella ; Kathe R.NThuymL (X1)Zofran 4 mg IVP X 1 21:10 03/08/2021 21:38 Jil,dose: 4 mg (NOW Pola Estrella ; Kathe R.N.x1)GENERAL ORDERSOrder Description Priority Entered Acknowledged Initialed[Electronically signed by Compa Seaman R.N. (23:03/08/2021)][Electronically signed by Pola Estrella (04:25 03/09/2021)] 2 OrderSheet [facility] Emergency Department [address] [place] [address] Phone #: ext- [phone] 03/08/2021 20:50 Patient: IVETH LAO Sex: F : 2000 Age: 20y[Electronically locked by Compa Seaman R.N. (23:03/08/2021)] Name Value Range Interpretation Code Description Data Deena rce(s) Supporting Document(s) ID Date Data Source [id number] 03/08/2021 08:51:00 PM EDT [facility] 1 Medication Reconciliation Report [facility] Emergency Department [address] [place] [address] Phone #: ext- [phone] 03/08/2021 20:50 Patient: IVETH LAO Sex: F : 2000 Age: 20yWeight: 76.2 kgHeight/Length: 65 in.BMI: 28.0ALLERGIES: NKAThe patient's Home Medications are listed below:THE FOLLOWING MEDICATIONS NEED TO BE RECONCILED: Omeprazole Oral (20 mg) 1 capsule, daily Vitamins OralThe source(s) of the original Home Medication information:patientThe following Medications were given to the patient in the Emergency Department:NS [IV] IV Fluids bolus 1000 mL wide open, administered: 21:23 03/08/2021Zofran [IVP] IVP 4 mg, administered: 21:28 03/08/2021The following Medications were prescribed to the patient:Zofran 4 mg tablet Take 1 tablet four times a day as needed for 4 days -- Dispense 16 tablet. Refills: 0.Substitution permitted. Note to Pharmacy - HELP PATIENT SAVE with Rx DISCOUNT CARD: $390.24.Use: BIN:[id number], PCN:SATISH, Group:[id number], ID:[id number].Pharmacy - [facility] [id number] ; [place] [address]. . -- Pola Estrella Name Value Range Interpretation Code Description Data Deena rce(s) Supporting Document(s) ID Date Data Source [id number] 03/08/2021 08:51:00 PM EDT [facility] 1 Medication Administration Record [facility] Emergency Department [address] [place] [address] Phone #: [phone]- [phone] 03/08/2021 20:50 Patient: IVETH LAO Sex: F : 2000 Age: 20yWeight: 76.2 kgHeight/Length: 65 inBMI: 28ALLERGIES: NKA Date/Time Medication Administered Medication OrderedStart NS [IV] NS IV 1000 mL Bolus: : Bolus [id number] 03/08/2021 Dose: IV Fluids mL (X1)Kathe Ley R.N. Bolus: 1000 mL wide open---- Dispensed: 1000 mL bagStop Site: #1 right AC22:46 03/08/2021Compa parnell R.N.Given ZOFRAN [IVP] (ONDANSETRON HCL) Zofran 4 mg IVP X 1 dose: 4 mg21:28 03/08/2021 Dose: 4 mg IVP (NOW x1)Kathe Ley R.N. Site: #1 right AC Name Value Range Interpretation Code Description Data Deena rce(s) Supporting Document(s) ID Date Data Source [id number] 03/08/2021 08:51:00 PM EDT [facility] 1 General Instructions [facility] Emergency Department [address] [place] [address] Phone #: ext- [phone] 03/08/2021 20:50 Patient: IVETH LAO Sex: F : 2000 Age: 20yVomiting with nausea. Not intractable.DiarrheaINSTRUCTIONSDo not work for two days.Drink plenty of fluids.Warnings: Further evaluation is necessary.GENERAL WARNINGS: Return or contact your physician immediately if your condition worsens orchanges unexpectedly, if not improving as expected, or if other problems arise.Prescription Medications:Zofran 4 mg tablet Take 1 tablet four times a day as needed for 4 days -- Dispense 16 tablet. Refills: 0.Substitution permitted. Note to Pharmacy - HELP PATIENT SAVE with Rx DISCOUNT CARD: $390.24.Use: BIN:[id number], PCN:SATISH, Group:[id number], ID:[id number].Pharmacy - [facility] [address] ; [place] [address]. .Understanding of the discharge instructions verbalized by patient.Follow-up with: [facility] Farshad [place], , , [address], , [place], [address] Follow up in two days if not well. Call for an appointment. Reason for referral: evaluation. ADDITIONAL INFORMATIONViral Gastroenteritis (Adult) 2 General Instructions [facility] Emergency Department [address] [place] [address] Phone #: ext- [phone] 03/08/2021 20:50 Patient: IVETH LAO Sex: F : 2000 Age: 20yGastroenteritis is commonly called the "stomach flu," although it has nothing to do with influenza. It ismost often caused by a virus that affects the stomach and intestinal tract and usually lasts from 2 to 7days. Common viruses causing gastroenteritis include norovirus, rotavirus, and hepatitis A. Non- viralcauses of gastroenteritis include bacteria, parasites, and toxins.The danger from repeated vomiting or diarrhea is dehydration. This is the loss of too much fluid fromthe body. When this occurs, body fluids must be replaced. Antibiotics don't help with this illnessbecause it is usually viral. Simple home treatment will be helpful.Symptoms of viral gastroenteritis may include: Watery, loose stools Stomach pain or abdominal cramps Fever and chills Nausea and vomiting Loss of bowel control HeadacheFramingham [facility] Hospitale care 3 General Instructions [facility] Emergency Department [address] [place] [address] Phone #: ext- [phone] 03/08/2021 20:50 Patient: IVETH LAO Sex: F : 2000 Age: 20yGastroenteritis is transmitted by contact with the stool or vomit of an infected person. This can occurfrom person to person or from contact with a contaminated surface.Follow these guidelines when caring for yourself at home: If symptoms are severe, rest at home for the next 24 hours or until you are f eeling better. Wash your hands with soap and water or use alcohol-based suction plate carrier cleaner to prevent the spread of infection. Wash your hands after touching anyone who is sick. Wash your hands or use alcohol-based suction plate carrier cleaner after using the toilet and before meals. Clean the toilet after each use.Remember these tips when preparing food: People with diarrhea should not prepare or serve food to others. When preparing foods, wash your hands before and after. Wash your hands after using cutting boards, countertops, knives, or utensils that have been in contact with raw food. Dry your hands with a single use towel. Keep uncooked meats away from cooked and agita-uw-ikl foods.MedicineYou may use acetaminophen or NSAID medicines like ibuprofen or naproxen to control fever unlessanother medicine was given. If you have chronic liver or kidney disease, talk with your healthcareprovider before using these medicines. Also talk with your provider if you've had a stomach ulceror gastroin testinal bleeding. Don't give aspirin to anyone under 18 years of age who is ill with a fever.It may cause severe liver damage. Don't use NSAIDS is you are already taking one for anothercondition (like arthritis) or are on aspirin (such as for heart disease or after a stroke).If medicine for vomiting or diarrhea are prescribed, take these only as directed. Nausea and diarrheamedicines are generally OK unless you have bleeding, fever, or severe abdominal pain.DietFollow these guidelines for food: Water and liquids are important so you don't get dehydrated. Drink a small amount at a time or suck on ice chips if you are vomiting. If you eat, avoid fatty, greasy, spicy, or fried foods. Don't eat dairy if you have diarrhea. This can make diarrhea worse. 4 General Instructions [facility] Emergency Department [address] [place] [address] Phone #: [phone]- [phone] 03/08/2021 20:50 Patient: IVETH LAO [facility]#: [id number] Sex: F : 2000 Age: 20y Avoid tobacco, alcohol, and caffeine which may worsen symptoms.During the first 24 hours (the first full day), follow the diet below: Beverages. Sports drinks, soft drinks without caffeine, jonn jaya, mineral water (plain or flavored), decaffeinated tea and coffee. If you are very dehydrated, sports drinks aren't a good choice. They have too much sugar and not enough electrolytes. In this case, commercially available products called oral rehydration solutions, are best. Soups. Eat clear broth, consomm, and bouillon. Desserts. Eat gelatin, ice pops, and fruit juice bars.During the next 24 hours (the second day), you may add the following to the above: Hot cereal, plain toast, bread, rolls, and crackers Plain noodles, rice, mashed potatoes, chicken noodle or rice soup Unsweetened canned fruit (avoid pineapple), bananas Limit fat intake to less than 15 grams per day. Do this b y avoiding margarine, butter, oils, mayonnaise, sauces, gravies, fried foods, peanut butter, meat, poultry, and fish. Limit fiber and avoid raw or cooked vegetables, fresh fruits (except bananas), and bran cereals. Limit caffeine and chocolate. Don't use spices or seasonings other than salt. Limit dairy products. Avoid alcohol.During the next 24 hours: Gradually resume a normal diet as you feel better and your symptoms improve. If at any time it starts getting worse again, go back to clear liquids until you feel better.Follow-up careFollow up with your healthcare provider, or as advised. Call your provider if you don't get better [id number] hours or if diarrhea lasts more than a week. Also follow up if you are unable to keep down liquidsand get dehydrated. If a stool (diarrhea) sample was taken, call as directed for the results.Call [phone] if any of these occur: 5 General Instructions [facility] Emergency Department [address] [place] [address] Phone #: ext- [phone] 03/08/2021 20:50 Patient: IVETH LAO Sex: F : 2000 Age: 20y Trouble breathing Chest pain Confused Severe drowsiness or trouble awakening Fainting or loss of consciousness Rapid heart rate Seizure Stiff neckWhen to seek medical adviceCall your healthcare provider right away if any of these occur: Abdominal pain that gets worse Continued vomiting (unable to keep liquids down) Frequent diarrhea (more than 5 times a day) Blood in vomit or stool (black or red color) Dark urine, reduced urine output, or extreme thirst Weakness or dizziness Drowsiness Fever of 100.4F (38C) or higher, or as directed by your healthcare provider Kehinde coelho [phone] [employer]. [address] [place] [address]. All rights reserved. This information is not intended as asubstitute for professional medical care. Always follow your healthcare professional's instructions.Viral Diarrhea (Adult) 6 General Instructions [facility] Emergency Department [address] [place] [address] Phone #: ext- [phone] 03/08/2021 20:50 Patient: IVETH LAO Sex: F : 2000 Age: 20yDiarrhea caused by a virus is often called viral gastroenteritis. Many people call it the "stomach flu,"but it has nothing to do with influenza. The virus that causes diarrhea affects the stomach andintestinal tract and usually lasts from 2 to 7 days. Diarrhea is the passing of loose, watery stools 3 ormore times a day.SymptomsAlong with diarrhea, you may have these symptoms: Abdominal pain and cramping Nausea and vomiting Loss of bowel control Fever and chills Bloody stoolsThe danger from repeated diarrhea is dehydration. Dehydration is the loss of too much water andother fluids from the body without taking in enough to replace what is lost. 7 General Instructions [facility] Emergency Department [address] [place] [address] Phone #: ext- [phone] 03/08/2021 20:50 Patient: IVETH LAO Sex: F : 2000 Age: 20yAntibiotics are not effective in this illness, but there are a number of things you can do at home thatwill help.Home careFollow these home care measures: If symptoms are severe, rest at home for the next 24 hours or until you are feeling better. Wash your hands with soap and water or alcohol-based suction plate carrier cleaner to prevent the spread of infection. Wash your hands after touching anyone who is sick. Wash your hands after using the toilet and before meals. Clean the toilet after each use.Food preparation: People with diarrhea should not prepare food for others. When preparing foods, wash your hands after touching anyone who is sick. Wash your hands after using cutting boards, countertops, and knives that have been in contact with raw food. Keep uncooked meats away from cooked and usnkg-li-ado foods.Medicines: You may use acetaminophen or NSAIDS such as ibuprofen or naproxen to control fever unless another medicine was prescribed. If you have chronic liver or kidney disease or ever had a stomach ulcer or gastrointestinal bleeding, talk with your healthcare provider before using these medicines. Aspirin should never be used in anyone under 18 years of age who is ill with a fever. It may cause severe liver damage. Don't use NSAID medicines if you are already taking one for another condition (like arthritis) or are on aspirin (such as for heart disease or after a stroke). Anti-diarrhea medicine should be taken for this condition only if advised by your healthcare provider. Sometimes anti-diarrhea medicine can make your condition worse. If you have bloody diarrhea or fever, check with your healthcare provider before taking antidiarrheals.Diet: Water and clear liquids are important so you don't get dehydrated. Drink small amounts at a time, don't guzzle it down. If you are very dehydrated, sports drinks aren't a good choice. They have too much sugar and not enough electrolytes. In this case, commercially available products called oral rehydration solutions are best. Caffeine, tobacco, and alcohol can make the diarrhea, cramping, and pain worse. 8 General Instructions [facility] Emergency Department [address] [place] [address] Phone #: ext- [phone] 03/08/2021 20:50 Patient: IVETH LAO Sex: F : 2000 Age: 20y Don't force yourself to eat, especially if you have cramping, vomiting, or diarrhea. Don't eat large amounts at a time, even if you are hungry. It may make you feel worse. If you eat, avoid fatty, greasy, spicy, or fried foods. No dairy products, as they can make diarrhea worse.During the first 24 Hours (the first full day) follow the diet below: Beverages: Water, clear liquids, soft drinks without caffeine; jonn jaya, mineral water (plain or flavored), decaffeinated tea and coffee. Soups: Clear broth, consomm and bouillon Desserts: Plain gelatin, popsicles and fruit juice barsDuring the next 24 hours (the second day) you may add the following to the above if you haveimproved: Hot cereal, plain toast, bread, rolls, crackers Plain noodles, rice, mashed potatoes, chicken noodle or rice soup Unsweetened canned fruit like applesauce and bananas (avoid pineapple and citrus) Limit fat intake to less than 15 grams per day by avoiding margarine, butter, oils, mayonnaise, sauces, gravies, fried foods, peanut butter, meat, poultry and fish. Limit fiber; avoid raw or cooked vegetables, fresh fruits (except bananas) and bran cereals. Limit caffeine and chocolate. No spices or seasonings except salt.During the next 24 hours Gradually resume a normal diet, as you feel better and your symptoms improve. If at any time the diarrhea or cramping gets worse, go back to the simpler diet (above) or to clear liquids.Follow-up careFollow up with your healthcare provider, or as advised. Call if you are not improving within 24 hoursor if the diarrhea lasts more than one week. This is especially true if you are in a high-risk group. Forexample, if you are very elderly, have a weak immune system (from cancer treatment for example), oryou have inflammatory bowel disease (Crohn's or colitis).If a stool (diarrhea) sample was taken, you may call in 2 days (or as directed) for the results.When to seek medical advice 9 General Instructions [facility] Emergency Department [address] [place] [address] Phone #: ext- [phone] 03/08/2021 20:50 [id number] Sex: F : 2000 Age: 20yCall your healthcare provider right away if any of the following occur: Increasing abdominal pain or constant lower right abdominal pain Continued vomiting (unable to keep liquids down) Frequent diarrhea (more than 5 times a day) Blood in vomit or stool (black or red color) Reduced oral intake Dark urine, reduced urine output Weakness, dizziness Drowsiness Fever of 100.4F (38C) oral or higher, or as directed by your healthcare provider Kehinde Martinez 911Call 911 if any of the following occur: Trouble breathing Confused Severe drowsiness or trouble awakening Fainting or loss of consciousness Rapid heart rate Seizure Stiff neck [employer]. [address] [place] [address], [place] [address]. All rights reserved. This information is not intended as asubstitute for professional medical care. Always follow your healthcare professional's instructions. You have been given the following additional information: Gastroenteritis, Viral (Adult) Diarrhea, Viral (Adult) 10 General Instructions [facility] Emergency Department [address] [place] [address] Phone #: ext- [phone] 03/08/2021 20:50 Patient: IVETH LAO Sex: F : 2000 Age: 20yDo not work for two days.(Electronically signed by Pola Estrella 03/09/2021 04:25) Name Value Range Interpretation Code Description Data Deena rce(s) Supporting Document(s) ID Date Data Source [id number] 03/08/2021 08:51:00 PM EDT [facility] 1 Clinical Report - Nurses [facility] Emergency Department [address] [place] [address] Phone #: ext- [phone] 03/08/2021 20:50 Patient: IVETH LAO Sex: F : 2000 Age: 20yTRIAGEArrived by private vehicle. Historian: patient. Accompanied by family. ( presents with sharp abdominalpain nausea vomitomg).Triage time: 20:54 03/08/2021. Acuity: LEVEL 3.Chief Complaint: ABDOMINAL PAIN, NAUSEA, VOMITING and DIARRHEA.20:54 03/08/21. Alert. No acute distress.This started today. 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 No suspected or confirmed signs of infection present.--20:59 03/08/21 Compa Seaman R.N.20:54 03/08/21. BP: 124/74. MAP: 90. HR: 84. RR: 16. O2 saturation: 100% on room air. Temp: 98.7 F.Pain level now: 01/27. --20:59 03/08/21 Compa Seaman R.N.Weight: 76.2 kg stated. Height/Length: 65 inches Per Patient. BMI: 28. --20:53 03/08/21 Compa Seaman R.N.MedicationsOmeprazole Oral (Capsule Delayed Release 20 mg) 1 capsule, daily. --20:56 03/08/21 Compa Seaman R.N. Vitamins Oral. --20:56 03/08/21 Compa Seaman R.N.AllergiesNKA. --20:55 03/08/21 Compa Seaman R.N.PROBLEMS:Asthma. --20:56 03/08/21 Compa Seaman R.N.20:54 03/08/21. Medication/allergy information source: the patient. --20:59 03/08/21 Compa Seaman R.N.ADDITIONAL SURGERIES:Oral surgery. --20:56 03/08/21 Compa Seaman R.N.Qclfeuj72:54 03/08/21. 2 Clinical Report - Nurses [facility] Emergency Department [address] [place] [address] Phone #: ext- [phone] 03/08/2021 20:50 Patient: IVETH LAO Sex: F : 2000 Age: 20y PAST MEDICAL HX: Currently : 11 weeks. SOCIAL HX: Never smoker. No alcohol use or drug use. No recent travel. No known contact with a sick individual. She was offered HIV testing but declined and hepatitis C testing but declined. She has not traveled outside the [place] Infectious disease exposure: No infectious disease exposure. The patient was not exposed to Coronavirus. SELF HARM ASSESSMENT: Self harm assessment was performed. The patient answered "no" to the question(s) "Have you recently felt down, depressed, or hopeless?", "Do you have thoughts of harming or killing yourself?", "Do you have a plan for harming or killing yourself?" and "Have you recently had thoughts about harming or killing others?". ABUSE ASSESSMENT: No report of abuse. NUTRITIONAL RISK ASSESSMENT: The nutritional risk assessment revealed no deficiencies. FUNCTIONAL ASSESSMENT: Functional assessment: no impairments noted. LEARNING NEEDS ASSESSMENT: The learning needs assessment revealed no barriers. FALL RISK ASSESSMENT: Fall risk assessment completed. No risk factors identified. SKIN INTEGRITY ASSESSMENT: Skin integrity risk assessment completed. No skin integrity risk identified. --20:59 03/08/21 Compa Seaman R.N. FAMILY HX: No significant family medical history. --21:53 03/08/21 Pola Estrella. Assessment 20:54 03/08/21. She states feels the same. --20:59 03/08/21 Compa Seaman R.N. Interventions 20:54 03/08/21. Identification band on patient. To treatment room. --20:59 03/08/21 Compa Seaman R.N.PHYSICAL ASSESSMENTlate entry - 21:05 03/08/21. Ambulatory to room.GENERAL / NEURO / PSYCH: Alert. Oriented X 4. Appears in no acute distress.HEENT: Mucous membranes are pink.RESPIRATORY: Respirations not labored. Breath sounds within normal limits.CVS: Normal sinus rhythm noted. Capillary refill less than 2 seconds.GI / : The patient has had nausea and diarrhea. Emesis noted. Abdomen soft. Abdominaltenderness. Bowel sounds within normal limits.SKIN: Skin is warm and dry. --21:10 03/08/21 Kathe Ley R.N.NURSING PROGRESS NOTES 3 Clinical Report - Nurses [facility] Emergency Department [address] [place] [address] Phone #: ext- [phone] 03/08/2021 20:50 Patient: IVETH LAO Sex: F : 2000 Age: 20y 20:59 03/08/21. Patient gowned. Reassurance given. Two patient identifiers checked. Call light placed in reach. Bed placed in lowest position. Brakes of bed on. Patient ready for evaluation- ED physician and PA notified. --21:00 03/08/21 Compa Seaman R.N. 21:03/08/2021 Site #1 started via IV in the right antecubital space with an 20g angiocath, with aseptic technique and good blood return; one attempt. Saline lock flushed with 10 mL saline. --21:38 03/08/21 Kathe Ley R.N. 21:03/08/2021 Started bag #1 1000 mL IV Fluids NS; bolus of 1000 mL wide open via site #1 via IV pump. Allergies verified and confirmed 5 rights. IV patency established. IV site checked: no pain, redness, or swelling. IV flushed thoroughly pre- and post-medication administration. Information reviewed with patient including reason for taking this medication, signs of allergic reaction and precautions. Verbalizes understanding. --21:38 03/08/21 Kathe Ley R.N. 21:03/08/2021 Zofran (Ondansetron HCl) IVP 4 mg given over 3 minute(s) via site #1. Allergies verified and confirmed 5 rights. IV patency established. IV site checked: no pain, redness, or swelling. IV flushed thoroughly pre- and post-medication administration. IVP given by RN. Information reviewed with patient including reason for taking this medication, signs of allergic reaction and precautions. Verbalizes understanding. --21:38 03/08/21 Kathe Ley R.N. Care transferred and report given (Compa Cavazos RN). --22:03/08/21 Ley, Kathe, R.N. late entry - 22:00 03/08/21. Monitoring of patient in place. Patient gowned. Reassurance given. Rounding: Position: states comfortable. Proximity of possessions / care items: call light within easy reach. Plug ins: assured IV pump plugged in; checked status of equipment in use; located all cords, tubes, and lines to prevent fall hazard. Set expectations: advised patient of rounding protocol timing and asked if they needed anything el se at this time. The patient is calm and resting quietly. Patient waiting for lab and radiology results. --22:22 03/08/21 Kathe Ley R.N. 22:46 03/08/2021 IV Fluids NS via IV site #1 Discontinued: bag #1 completed. Total amount infused: 1000 mL. IV patency established. IV site checked: no pain, redness, or swelling. IV flushed thoroughly. --22:46 03/08/21 Compa Seaman R.N.DISPOSITION / DISCHARGE 23:03 03/08/21. BP: 126/76. HR: 81. RR: 20. O2 saturation: 100%. Temp: 97.7 F. Pain level now 02/26. --23:04 03/08/21 Jessica Miller 23:00 03/08/21. Departure time: 23:05 03/08/2021. Condition at departure: improved and stable. The goals identified in the patient's plan of care were met. No learning barriers present. Reviewed warnings. Reviewed medication(s) side effects, precautions, dosing and course information. Prescription(s) sent electronically to pharmacy. Treatments reviewed. Reviewed referral to a primary care physician. Work note given. Patient verbalized understanding. Written instructions provided in Amharic. The patient was discharged 4 Clinical Report - Nurses [facility] Emergency Department [address] [place] [address] Phone #: ext- [phone] 03/08/2021 20:50 Patient: IVETH LAO Sex: F : 2000 Age: 20y by the physician patient observation assistant. She was discharged home and accompanied by spouse. She left ambulatory and via private vehicle. Spouse driving. --23:06 03/08/21 Compa Seaman R.N. 23:05 03/08/2021 Site #1 removed upon discharge. Catheter intact. Bandage applied. --23:05 03/08/21 Compa Seaman R.N.Locked/Released at 03/08/2021 23:17 by Compa Seaman R.N. Name Value Range Interpretation Code Description Data Deena rce(s) Supporting Document(s) ID Date Data Source [id number] 03/08/2021 08:51:00 PM EDT [facility] 1 Clinical Report - Physicians/Mid Levels [facility] Emergency Department [address] [place] [address] Phone #: ext- [phone] 03/08/2021 20:50 Patient: IVETH LAO Sex: F : 2000 Age: 20y Time Seen: 21:39 03/08/2021. Arrived- By private vehicle. Historian- patient.HISTORY OF PRESENT ILLNESS Chief Complaint: VOMITING and DIARRHEA. This started just prior to arrival and is still present. It was abrupt in onset. The patient has had vomiting and moderate, colicky abdominal pain. The pain is described as located in the RLQ, suprapubic region and LLQ and associated with nausea and vomiting. No constipation, flank pain, history of possible bad food exposure or known contact with a sick individual. Has not recently been on antibiotics. The illness is described as moderate. (low back pain for weeks, but no burning with urination and no diarrhea. Diarrhea and vomiting started today. at 11 weeks. No vaginal bleeding.). Similar symptoms previously. None. Recent medical care: The patient was seen recently in the office. ( OB at [place]. 3 weeks ago she had ultrasound).REVIEW OF SYSTEMSNo muscle aches, headache, chest pain, difficulty breathing or jaundice. She has had difficulty withurination, and back pain. All other systems reviewed and are negative.PAST HISTORYSee nurses notes. No history of bowel obstruction. Problems: Asthma. Additional Surgeries: Oral surgery. Medications: Vitamins Oral. Omeprazole Oral (Capsule Delayed Release 20 mg) 1 capsule, daily. Allergies: NKA.SOCIAL HISTORYNever smoker. No alcohol use. 2 Clinical Report - Physicians/Mid Levels [facility] Emergency Department [address] [place] [address] Phone #: ext- [phone] 03/08/2021 20:50 Patient: IVETH LAO Sex: F : 2000 Age: 20yFAMILY HISTORYNo significant family medical history.ADDITIONAL NOTESThe nursing notes have been reviewed.PHYSICAL EXAMVital Signs: 03/08/2021 20:54 BP: 124/74. MAP: 90. HR: 84. RR: 16. O2 saturation: 100% on room air.Temp: 98.7 F. Pain level now: 6/10.Appearance: Alert. Oriented X3. No acute distress.Eyes: Pupils equal, round and reactive to light. Eyes normal inspection.ENT: Nose normal.Neck: Normal inspection. Neck supple.CVS: Normal heart rate and rhythm. Heart sounds normal.Respiratory: No respiratory distress. Painless inspiration.Abdomen: Soft. Mild tenderness in the left lower quadrant. Bowel sounds normal. No organomegaly.No mass.Back: Normal inspection.Skin: Skin warm and dry. Normal skin color. No rash. Normal skin turgor.Extremities: No lower extremity edema.Neuro: Oriented X 3. No motor deficit. No sensory deficit. Reflexes normal.LABS, X-RAYS, AND EKGLaboratory Tests: US RENAL COMPLETE: (CHAR: 03/08/2021 21:48) ( MsgRcvd 03/08/2021 22:28) Final results Test Result Flag Units (Reference) US RENAL COMPLETE [address] [address] ---------NAME--------- NUMBER SEX AGE ADMIT DISC. XRAY# F/C TYPE TASHIA Cano [id number] F 03/08/21 [id number] SB4 E/R DATE OF : 2000 M/R# [id number] #: [id number] TR-02 LOCATION: EMERGENCY DEPT TRANSCRIBED: 03/08/21 22:28 IF US RENAL COMPLETE [id number] COMPLETED:03/08/21 22:19 [facility] [id number] Reason(s): left flank pain -- PHYSICIAN: SUSAN Ashton -- -- R A D I O L O G Y R E P O R T -- PATIENT HISTORY: -- lt flank pain EXAM: US Retroperitoneum, Renal. -- CLINICAL HISTORY: Lt flank pain -- TECHNIQUE: Real-time ultrasound of the retroperitoneum with image documentation. 3 Clinical Report - Physicians/Mid Levels [facility] Emergency Department [address] [place] [address] Phone #: ext- [phone] 03/08/2021 20:50 Patient: IVETH LAO Sex: F : 2000 Age: 20y -- COMPARISON: None provided. -- -- FINDINGS: -- RIGHT KIDNEY: There is a 2.3 cm right renal cyst. No hydronephrosis. -- LEFT KIDNEY: Normal in size and contour. No renal mass or calculus. No -- hydronephrosis. -- BLADDER: Urinary bladder is decompressed. Ureteral jets not assessed. -- -- IMPRESSIONS: -- No hydronephrosis. -- -- Electronically Signed By: Cale Patel M.D. , Radiologist Date/Time: 03/08/21 22:28BMP: (CHAR: 03/08/2021 21:20) ( MsgRcvd 03/08/2021 21:56) Final results Test Result Flag Units (Reference) BASIC METABOLIC PANEL BASIC METABOLIC PANEL SODIUM 137 mEq/L (134 - 153) POTASSIUM 3.6 mEq/L (3.6 - 5.0) CHLORIDE 101 mEq/L (98 - 107) CO2 24 MEQ/L (22 - 30) GLUCOSE 90 MG/DL (70 - 99) BUN 6 L MG/DL (7 - 21) CREATININE 0.5 L MG/DL (0.7 - 1.5) BUN/CREAT 12 (8 - 27) CALCIUM 9.5 MG/DL (8.4 - 10.2) ANION GAP 12.0 mmol/L (8.0 - 16.0) AGE 20 yrs AFR AMER GFR >60 mL/min NON-AA GFR >60 mL/min Male GFR Interprentation 20-49 yrs >60 mL/min Wyxaid22-65 yrs >56 mL/min Normal 60-69 yrs >49 mL/min Normal 70-79yrs>42 mL/min Normal 80 and above >35 mL/min Normal Female GFRInterpretation 20-39 yrs >60 mL/min Normal 40-49 yrs >58 mL/minNormal 50-59 yrs >51 mL/min Normal 60-69 yrs >45 mL/min Ncczuy72-63 yrs >39 mL/min Normal 80 and above >32 mL/min NormalCBC w Diff: (CHAR: 03/08/2021 21:20) ( MsgRcvd 03/08/2021 21:53) F inal results Test Result Flag Units (Reference) CBC W/AUTOMATED DIFF COMPLETE BLOOD COUNT WBC 11.1 H 10/uL (4.2 - 11.0) RBC 4.48 10/uL (4.20 - 5.40) HEMOGLOBIN 13.3 g/dL (12.0 - 16.0) HEMATOCRIT 37.4 % (37.0 - 47.0) MCV 83.5 fL (81.0 - 101) MCH 29.7 pg (27.0 - 34.0) MCHC 35.6 g/dL (31.0 - 36.0) RDW 12.4 % (11.5 - 14.5) 4 Clinical Report - Physicians/Mid Levels [facility] Emergency Department [address] [place] [address] Phone #: ext- [phone] 03/08/2021 20:50 Patient: IVETH LAO Sex: F : 2000 Age: 20y PLATELETS 274 10/uL (150 - 450) MPV 9.6 fL (7.4 - 10.4) NEUT 74.5 % (37.0 - 80.0) LYMPH 18.3 L % (25.0 - 40.0) MONO 5.6 % (3.0 - 8.0) EOS 1.1 % (0.0 - 7.0) BASO 0.4 % (0.0 - 2.5) %IG 0.1 H % (0.0 - 0.0) %NRBC 0.0 % (0.0 - 0.0) #NEUT 8.25 H 10/uL (2.00 - 6.90) #LYMPH 2.03 10/uL (0.60 - 3.40) #MONO 0.62 10/uL (0.00 - 0.90) #EOS 0.12 10/uL (0.00 - 0.70) #BASO 0.04 10/uL (0.00 - 0.20) #IG 0.01 10/uL (0.00 - 0.10) #NRBC 0.00 10/uL (0.00 - 0.00) MANUAL DIFF NOT INDICATED RBC MORPH NOT INDICATED Urinalysis: (CHAR: 03/08/2021 21:20) ( [facility] 03/08/2021 21:37) Final results Test Result Flag Units (Reference) URINALYSIS URINALYSIS SOURCE R COLOR yellow (NORMAL: Yello CLARITY clear (NORMAL: Clear SPEC GRAVITY 1.025 (1.001 - 1.030 pH 6 (5 - 9) GLUCOSE NORM (NORMAL: Negat BILIRUBIN NEG (NORMAL: Negat KETONE 5 A (NORMAL: Negat PROTEIN 30 (NORMAL: Negat NITRITE NEG (NORMAL: Negat BLOOD 25 A (NORMAL: Negat LEUK EST NEG (NORMAL: Negat UROBILINOGEN NOR (less than 1.0 MICROSCOPIC See Below WBC 1 - 3 (NORMAL: NONE RBC None Seen (NORMAL: NONE EPITHELIAL MANY A (NORMAL: NONE BACTERIA 1+ SMALL (NORMAL: NONE MUCOUS 1+ (NORMAL: NONE CRYSTALS See Below CALCIUM OX 2+ A (NORMAL: NONE Beta-HCG, Qual Urine: (CHAR: 03/08/2021 21:20) ( [facility] 03/08/2021 21:31) Final results Test Result Flag Units (Reference) HCG URINE QUAL POSITIVE (NORMAL: NEGAT HCG URINE QL REENTER POSITIVE (NORMAL: NEGAT { KIT LOT # [id number] ){ KIT EXP DATE 08/19/22 ){ PROCEDURAL CONTROL VALID ).PROGRESS AND PROCEDURES 5 Clinical Report - Physicians/Mid Levels [facility] Emergency Department [address] [place] [address] Phone #: ext- [phone] 03/08/2021 20:50 Patient: IVETH LAO Sex: F : 2000 Age: 20y Course of Care: 21:54 03/08/21. gastroenteritis vs UTI vs hyperemesis gravidarum. She has had some nausea with this but no significant vomiting. No tenderness in RLQ 22:54 03/08/21. no signs of hydronephrosis or hydroureters. No signs of UTI's. Disposition: Discharged. Condition: s table.CLINICAL IMPRESSION Vomiting with nausea. Not intractable. DiarrheaINSTRUCTIONS Do not work for two days. Drink plenty of fluids. Warnings: Further evaluation is necessary. GENERAL WARNINGS: Return or contact your physician immediately if your condition worsens or changes unexpectedly, if not improving as expected, or if other problems arise. Prescription Medications: Zofran 4 mg tablet Take 1 tablet four times a day as needed for 4 days -- Dispense 16 tablet. Refills: 0. Substitution permitted. Note to Pharmacy - HELP PATIENT SAVE with Rx DISCOUNT CARD: $390.24. Use: BIN:[id number], PCN:Apoorva COVARRUBIAS:EMR, ID:[id number]. Pharmacy - [facility] [id number] ; [place] [address]. . Understanding of the discharge instructions verbalized by patient. Follow-up with: [facility] Respective Team Farshad [place], , , [address], , [place], [address] Follow up in two days if not well. Call for an appointment. Reason for referral: evaluation.(Electronically signed by Pola Estrella 03/09/2021 04:25) Name Value Range Interpretation Code Description Data Deena rce(s) Supporting Document(s) ID Date Data Source [id number] 03/08/2021 10:28:[address] [facility] [address] [place] [address] ---------NAME--------- NUMBER SEX AGE ADMIT DISC. XRAY# F/C TYPE TASHIA IVETH E [id number] F 03/08/21 [id number] SB4 E/R DATE OF : 2000 M/R# [id number] #: [id number] TR-02 LOCATION: EMERGENCY DEPT TRANSCRIBED: 03/08/21 22:28 IF US RENAL COMPLETE [id number] COMPLETED:03/08/21 22:19 [facility] [id number] Reason(s): left flank pain PHYSICIAN: SUSAN Ashton R A D I O L O G Y R E P O R T PATIENT HISTORY:lt flank painEXAM: US Retroperitoneum, Renal.CLINICAL HISTORY: Lt flank painTECHNIQUE: Real-time ultrasound of the retroperitoneum with image documentation.COMPARISON: None provided.FINDINGS:RIGHT KIDNEY: There is a 2.3 cm right renal cyst. No hydronephrosis.LEFT KIDNEY: Normal in size and contour. No renal mass or calculus. Nohydronephrosis.BLADDER: Urinary bladder is decompressed. Ureteral jets not assessed.IMPRESSIONS:No hydronephrosis.Electronically Signed By:Cale Patel M.D. , RadiologistDate/Time: 03/08/21 22:28 Name Value Range Interpretation Code Description Data Deena rce(s) Supporting Document(s) ID Date Data Source [id number] 03/08/2021 09:55:00 PM EDT [facility] Name Value Range Interpretation Code Description Data Deena rce(s) Supporting Document(s) BASIC METABOLIC PANEL [facility] BASIC METABOLIC PANEL Sodium [Moles/volume] in Serum or Plasma 137 mEq/L 134 - 153 [facility] Potassium [Moles/volume] in Serum or Plasma 3.6 mEq/L 3.6 - 5.0 [facility] Chloride [Moles/volume] in Serum or Plasma 101 mEq/L 98 - 107 [facility] Carbon dioxide, total [Moles/volume] in Serum or Plasma 24 MEQ/L 22 - 30 [facility] Glucose [Mass/volume] in Serum or Plasma 90 MG/DL 70 - 99 [facility] BUN 6 MG/DL 7 - 21 L [facility] al Creatinine [Mass/volume] in Serum or Plasma 0.5 MG/DL 0.7 - 1.5 L [facility] BUN/CREAT 12 8 - 27 [facility] Calcium [Mass/volume] in Serum or Plasma 9.5 MG/DL 8.4 - 10.2 [facility] Anion gap 3 in Serum or Plasma 12.0 mmol/L 8.0 - 16.0 [facility] AGE 20 yrs [facility] al AFR AMER GFR >60 mL/min [facility] Ho spital NON-AA GFR >60 mL/min [facility] ital Male GFR Inter prentation 20-49 yrs >60 mL/min Normal 50-59 yrs >56 mL/min Normal 60-69 yrs >49 mL/min Normal 70-79yrs >42 mL/min Normal 80 and above >35 mL/min Normal Female GFR Interpretation 20-39 yrs >60 mL/min Normal 40-49 yrs >58 mL/min Normal 50-59 yrs >51 mL/min Normal 60-69 yrs >45 mL/min Normal 70-79 yrs >39 mL/min Normal 80 and above >32 mL/min Normal ID Date Data Source [id number] 03/08/2021 09:53:00 PM EDT [facility] Name Value Range Interpretation Code Description Data Deena rce(s) Supporting Document(s) CBC W/AUTOMATED DIFF [facility] COMPLETE BLOOD COUNT Leukocytes [#/volume] in Blood by Automated count 11.1 10^3/uL 4.2 - 11.0 H [facility] Erythrocytes [#/volume] in Blood by Automated count 4.48 10^6/uL 4. 20 - 5.40 [facility] Hemoglobin [Mass/volume] in Blood 13.3 g/dL 12.0 - 16.0 [facility] Hematocrit [Volume Fraction] of Blood by Automated count 37.4 % 3 7.0 - 47.0 [facility] Erythrocyte mean corpuscular volume [Entitic volume] by Auto mated count 83.5 fL 81.0 - 101 [facility] Erythrocyte mean corpuscular hemoglobin [Entitic mass] by Automated count 29.7 pg 27.0 - 34.0 [facility] Erythrocyte mean corpuscular hemoglobin concentration [Mass/volume] by Automated count 35.6 g/dL 31.0 - 36.0 [facility] Erythrocyte distribution width [Ratio] by Automated count 12.4 % 11.5 - 14.5 [facility] Platelets [#/volume] in Blood by Automated count 274 10^3/uL 150 - 45 0 [facility] Platelet mean volume [Entitic volume] in Blood by Automated count 9.6 fL 7.4 - 10.4 [facility] Neutrophils/100 leukocytes in Blood by Automated count 74.5 % 37. 0 - 80.0 [facility] Lymphocytes/100 leukocytes in Blood by Manual count 18.3 % 25.0 - 40.0 L [facility] Monocytes/100 leukocytes in Blood by Automated count 5.6 % 3.0 - 8.0 [facility] Eosinophils/100 leukocytes in Blood by Automated count 1.1 % 0.0 - 7.0 [facility] Basophils/100 leukocytes in Blood by Automated count 0.4 % 0.0 - 2.5 [facility] %IG 0.1 % 0.0 - 0.0 H [facility] al %NRBC 0.0 % 0.0 - 0.0 [facility] al Neutrophils [#/volume] in Blood by Automated count 8.25 10^3/uL 2.00 - 6.90 H [facility] Lymphocytes [#/volume] in Blood by Automated count 2.03 10^3/uL 0.60 - 3.40 [facility] Monocytes [#/volume] in Blood by Automated count 0.62 10^3/uL 0.00 - 0.90 [facility] Eosinophils [#/volume] in Blood by Automated count 0.12 10^3/uL 0.00 - 0.70 [facility] Basophils [#/volume] in Blood by Automated count 0.04 10^3/uL 0.00 - 0.20 [facility] #IG 0.01 10^3/uL 0.00 - 0.10 [facility] #NRBC 0.00 10^3/uL 0.00 - 0.00 [facility] MANUAL DIFF NOT INDICATED [facility] RBC MORPH NOT INDICATED [facility] ID Date Data Source [id number] 03/08/2021 09:36:00 PM EDT [facility] Name Value Range Interpretation Code Description Data Deena rce(s) Supporting Document(s) URINALYSIS [facility] nir URINALYSIS SOURCE R [facility] al COLOR yellow NORMAL: Yellow [facility] ospital CLARITY clear NORMAL: Clear [facility] Ho spital Specific gravity of Urine by Test strip 1.025 1.001 - 1.030 [facility] pH 6 5 - 9 [facility] al Glucose [Mass/volume] in Urine by Test strip NORM NORMAL: Negat [facility] Bilirubin.total [Presence] in Urine by Test strip NEG NORMAL: Negative [facility] Ketones [Presence] in Urine by Test strip 5 NORMAL: Negative [facility] Protein [Mass/volume] in Urine by Test strip 30 NORMAL: Negat [facility] Nitrite [Presence] in Urine by Test strip NEG NORMAL: Negative [facility] BLOOD 25 NORMAL: Negative [facility] LEUK EST NEG NORMAL: Negative [facility] Urobilinogen [Mass/volume] in Urine by Test strip NOR less amarilys n 1.0 mg/dL [facility] MICROSCOPIC See Below [facility] ital WBC 1 - 3 NORMAL: NONE SEEN [facility] Erythrocytes [#/volume] in Urine by Test strip None Seen NORMAL: NON E SEEN [facility] EPITHELIAL MANY NORMAL: NONE SEEN [facility] Bacteria [Presence] in Urine sediment by Light microscopy 1+ SMALL NORMAL: NONE SEEN [facility] Mucus [Presence] in Urine sediment by Light microscopy 1+ NOR MAL: NONE SEEN [facility] Crystals [type] in Urine sediment by Light microscopy See Below [facility] CALCIUM OX 2+ NORMAL: NONE SEEN A [facility] ID Date Data Source [id number] 03/08/2021 09:30:00 PM EDT [facility] Name Value Range Interpretation Code Description Data Deena rce(s) Supporting Document(s) HCG URINE QUAL POSITIVE NORMAL: NEGATIVE [facility] HCG URINE QL REENTER POSITIVE NORMAL: NEGATIVE Ca [facility] { KIT LOT # [id number] ){ KIT EXP DATE 08/19/22 ){ PROCEDURAL CONTROL VALID ) ID Date Data Source [id number] 02/28/2021 12:00:00 AM EDT [facility]) Name Value Range Interpretation Code Description Data Deena rce(s) Supporting Document(s) Measles virus IgG Ab [Units/volume] in Serum by Immunoassay >300.00 Measles Ab (IgG), Immune Status [facility]) Mumps virus IgG Ab [Units/volume] in Serum by Immunoassay >300.00 Mumps Virus Ab (IgG), Immune Status [facility]) Rubella virus IgG Ab [Units/volume] in Serum or Plasma by Immunoassay 5.34 index Rubella Ab (IgG), Immune Status [facility]) ID Date Data Source [id number] 02/28/2021 12:00:00 AM EDT [facility]) Name Value Range Interpretation Code Description Data Deena rce(s) Supporting Document(s) Mumps virus IgG Ab [Units/volume] in Serum by Immunoassay >300.00 Mumps Virus Ab (IgG), Immune Status [facility]) Measles virus IgG Ab [Units/volume] in Serum by Immunoassay >300.00 Measles Ab (IgG), Immune Status [facility]) Rubella virus IgG Ab [Units/volume] in Serum or Plasma by Immunoassay 5.34 index Rubella Ab (IgG), Immune Status [facility]) ID Date Data Source [id number] 02/28/2021 12:00:00 AM EDT [facility]) Name Value Range Interpretation Code Description Data Deena rce(s) Supporting Document(s) Measles virus IgG Ab [Units/volume] in Serum by Immunoassay >300.00 Measles Ab (IgG), Immune Status ROLANDO ([facility]) Mumps virus IgG Ab [Units/volume] in Serum by Immunoassay >300.00 Mumps Virus Ab (IgG), Immune Status BEAVER ([facility]) Rubella virus IgG Ab [Units/volume] in Serum or Plasma by Immunoassay 5.34 index Rubella Ab (IgG), Immune Status [facility]) ID Date Data Source [id number] 02/28/2021 12:00:00 AM EDT [facility]) Name Value Range Interpretation Code Description Data Deena rce(s) Supporting Document(s) Measles virus IgG Ab [Units/volume] in Serum by Immunoassay >300.00 Measles Ab (IgG), Immune Status BEAVER ([facility]) Rubella virus IgG Ab [Units/volume] in Serum or Plasma by Immunoassay 5.34 index Rubella Ab (IgG), Immune Status BEAVER ([facility]) Mumps virus IgG Ab [Units/volume] in Serum by Immunoassay >300.00 Mumps Virus Ab (IgG), Immune Status [facility]) ID Date Data Source [id number] 01/10/2021 12:20:00 PM EDT [facility] ([facility]) Name Value Range Interpretation Code Description Data Deena rce(s) Supporting Document(s) Bacteria identified in Urine by Culture Laboratory test result [facility] ([facility]) Rx Diflucan ID Date Data Source [id number] 08/08/2020 02:09:00 PM EST [facility] Name Value Range Interpretation Code Description Data Deena rce(s) Supporting Document(s) SARS-CoV-2, CABRERA Not Detected Not Detected [facility] This nucleic acid amplification test was developed and its performancecharacteristics determined by [employer]. Nucleic acidamplification tests include PCR and TMA. This test has not been FDAcleared or approved. This test has been authorized by FDA under anEmergency Use Authorization (EUA). This test is only authorized forthe duration of time the declaration that circumstances existjustifying the authorization of the emergency use of in vitrodiagnostic tests for detection of SARS-CoV-2 virus and/or diagnosisof COVID-19 infection under section 564(b)(1) of the Act, 21 U.S.C.360bbb-3(b) (1), unless the authorization is terminated or revokedsooner.When diagnostic testing is negative, the possibility of a falsenegative result should be considered in the context of a patient'srecent exposures and the presence of clinical signs and symptomsconsistent with COVID- 19. An individual without symptoms of COVID-19and who is not shedding SARS-CoV-2 virus would expect to have anegative (not detected) result in this assay. ID Date Data Source [id number] 08/06/2020 05:28:00 PM EST [facility] Name Value Range Interpretation Code Description Data Deena rce(s) Supporting Document(s) SARS coronavirus 2 RNA [facility] This lab was ordered by Rajesh johnson and reported by [facility]. ID Date Data Source [id number] 07/03/2020 07:30:00 PM [facility] Name Value Range Interpretation Code Description Data Deena rce(s) Supporting Document(s) SARS coronavirus 2 RNA [facility] This lab was ordered by [employer] [facility] and rep orted by [facility]. Procedure Social History No Information Vital Signs ID Date Data Source UNK Name Value Range Interpretation Code Description Data Source(s) Body temperature 98.4 [degF] 98.4 [degF] [facility] ([facility]) Respiratory rate 16 /min 16 /min [facility] ( [facility]) Systolic blood pressure 146 mm[Hg] 146 mm[Hg] M [facility] ([facility], [facility]) Diastolic blood pressure 87 mm[Hg] 87 mm[Hg] [facility] ([facility]) Heart rate 89 /min 89 /min [facility] ([facility]) Oxygen saturation in Arterial blood by Pulse oximetry 98 % 98 % [facility] ([facility]) Body mass index (BMI) [Ratio] 29.3 kg/m2 29.3 k g/m2 [facility] ([facility], [facility]) Body weight 176.00 [lb_av] 176.00 [lb_av] [facility] ([facility], [facility]) Body height 65 [in_i] 65 [in_i] [facility] ([facility], [facility]) 5'5"
--- OUTSIDE RECORDS SUMMARY | 2021-07-12 03:19 | CCD ---
Author Organization Unknown Address [address] [place] [address] Phone [phone] Care Team Providers Care Server Developer Name Role Phone 238 Nurse_adult Unavailable Unavailable [...] Respiratory Specimen ABNORMAL Sars-cov-2 positive negative Final [facility] don: [address] [facility] 05/04/2021 SARS CoV 2 RdRp Gene, QL Probe, Respiratory Spec imen Nasopharyngeal Normal Sars-cov-2 negative negative Final [facility] Medical: [address] [place] [address] 02/28/2021 MMR Immunity, Serum Normal Measles Ab (IgG), Immune Status >300.00 AU/mL Final [facility]: [address], [place] Normal Mumps Virus Ab (IgG), Immune Status >300.00 AU/mL Final [facility]: [address], [place] Normal Rubella Ab (IgG), Immune Status 5.34 index Final [facility]: [address], [place] Past Encounters 06/01/2021 Exposure to SARS-CoV-2 Kaleb Huerta MD: [address] [place] [address], Ph. 05/04/2021 Exposure to SARS-CoV-2 Kaleb Huerta MD: [address] [place] [phone], Ph. 04/13/2021 Administration of SARS-CoV-2 Antigen Vaccine Kaleb Huerta MD: [address] [place] [address], Ph. 03/24/2021 Administration of SARS-CoV-2 Antigen Vaccine Kaleb Huerta MD: [address] [place] [address], Ph. 02/28/2021 Kaleb Huerta MD: [address] [place] [address], Ph. Social History None recorded. Vaccine List Vaccine Type COVID-19, mRNA, LNP-S, PF, 30 mcg/0.3 mL dose .3 mL .3 mL Plan of Care Reminders Provider Appointments None recorded. Lab None recorded. Referral None recorded. Procedures None recorded. Surgeries None recorded. Imaging None recorded. Vitals None recorded.
--- OUTSIDE RECORDS SUMMARY | 2021-07-12 03:19 | CCD ---
Author Organization Unknown Address [address] [place] [address] Phone [phone] Care Team Providers Care Gold Miner Name Role Phone 238 Nurse_adult Unavailable Unavailable [...] imen Nasopharyngeal Normal Sars-cov-2 negative negative Final [facility] Medical: [address] [facility] 02/28/2021 MMR Immunity, Serum Normal Measles Ab (IgG), Immune Status >300.00 AU/mL Final [facility]: [address] [facility] Normal Mumps Virus Ab (IgG), Immune Status >300.00 AU/mL Final [facility] [address] [facility] Normal Rubella Ab (IgG), Immune Status 5.[address] [facility]: [address] [facility] Past Encounters 05/04/2021 Exposure to SARS-CoV-2 Kaleb Huerta MD: [address] [place] [phone], Ph. 04/13/2021 Administration of SARS-CoV-2 Antigen Vaccine Kaleb Huerta MD: [address] [place] [phone], Ph. 03/24/2021 Administration of SARS-CoV-2 Antigen Vaccine Kaleb Huerta MD: [address] [place] [phone], Ph. 02/28/2021 Kaleb Huerta MD: [address] [place] [address], Ph. Social History None recorded. Vaccine List Vaccine Type COVID-19, mRNA, LNP-S, PF, 30 mcg/0.3 mL dose .3 mL .3 mL Plan of Care Reminders Provider Appointments None recorded. Lab None recorded. Referral None recorded. Procedures None recorded. Surgeries None recorded. Imaging None recorded. Vitals None recorded.
[2021-07-12] MEDS: ACETAMINOPHEN 325 MG TAB PO SCH ×4 (03:53→21:00)
[2021-07-12] MEDS ORDERED: NS 1,000 ML IV SCH (04:35)
--- NOTE | 2021-07-12 05:23 | REPVR ---
PROCEDURE INFORMATION: Exam: US Retroperitoneal; Complete; Kidneys and Bladder Exam date and time: 07/12/2021 3:43 AM Age: 20 years old Clinical indication: Abdominal pain; Flank; Right; ; Additional info: Frequent utis, frequency with minimal urination TECHNIQUE: Imaging protocol: Real-time ultrasound of the retroperitoneum with image documentation. Complete exam focused on the kidneys and bladder. COMPARISON: No relevant prior studies available. FINDINGS: Right kidney: Right kidney measures 13.2 x 7.2 x 6.7 cm. Moderate right hydronephrosis. Few echogenic foci within the right kidney measuring up to 5 mm suspicious for renal calculi. There is also a 9 mm shadowing echogenic focus in the region of the distal right ureter at the level of the right UVJ suspicious for a distal right ureteral calculus. Left kidney: Left kidney measures 13.5 x 6.5 x 5.9 cm. Mild left hydronephrosis. No mass or calculi visualized. Uterus: Intrauterine noted. Urinary bladder: Partially decompressed. Right ureteral jet is not visualized. Left ureteral jet is present. IMPRESSION: 1. Moderate right hydronephrosis with right nephrolithiasis and a probable 9 mm calculus within the distal right ureter at the level of the right UVJ. No right ureteral jet. 2. Mild left hydronephrosis, likely physiologic in the setting of . A left ureteral jet is present. Electronically signed by: Lenin Dailey On 07/12/2021 05:23:18 AM
[2021-07-12] MEDS ORDERED: diphenhydrAMINE 50MG/ML VIAL (J1200) IV PRN (05:30)
[2021-07-12] MEDS ORDERED: MORPHINE 1MG/ML IN 0.9% NACL 100ML IV BAG IV PRN (05:30)
[2021-07-12] MEDS ORDERED: NALOXONE INJ 0.4MG/1ML VIAL (J2310 PER 1MG) IV PRN (05:30)
[2021-07-12] MEDS ORDERED: EPIDURAL/PCA KEYS XX PRN (05:30)
[2021-07-12] MEDS ORDERED: ONDANSETRON 4MG/2ML VIAL IV PRN ×2 (05:30→23:15)
--- NOTE | 2021-07-12 05:35 | REPVR ---
PROCEDURE INFORMATION: Exam: US , Limited Exam date and time: 07/12/2021 3:43 AM Age: 20 years old Clinical indication: Pain indication: RT flank pain; ; Additional info: 28 wks TECHNIQUE: Imaging protocol: Real-time ultrasound of the maternal uterus with image documentation. Exam focused on the clinical indication. COMPARISON: RENAL US 07/12/2021 3:13 AM FINDINGS: Gestation: Single live intrauterine . heart rate: heart rate 142 bpm. position: Cephalic position. Placenta: Anterior left lateral placenta. Grade 1. No previa. Amniotic fluid: Normal amniotic fluid volume. KYAW 20.2 cm. Umbilical cord: Normal cord Doppler. S/D ratio 3.1 (2.0-4.2) and RI 0.68 (0.53-0.77). MATERNAL: Cervix: Cervix is closed measuring 4.9 cm in length. IMPRESSION: 1. Single live IUP in cephalic position. 2. Biophysical profile reported below. PROCEDURE INFORMATION: Exam: US Biophysical Profile Without Non-Stress Test Exam date and time: 07/12/2021 3:43 AM Age: 20 years old Clinical indication: Pain indication: RT flank pain; ; Additional info: 28 wks TECHNIQUE: Imaging protocol: US biophysical profile without non-stress testing. COMPARISON: RENAL US 07/12/2021 3:13 AM FINDINGS: BIOPHYSICAL PROFILE: Breathin/2 Gross body movements: 2/2 tone: 2/2 Qualitative amniotic fluid: 2/2 Biophysical Profile Score: 8/8 IMPRESSION: Biophysical profile score is 8 out of 8. Electronically signed by: Lenin Dailey On 07/12/2021 05:35:12 AM
[2021-07-12] MEDS: NS 1,000 ML IV SCH ×2 (06:45→15:45)
[2021-07-12] MEDS: PIPERACILLIN/TAZOBACTAM SOD 3.375 GM in D5W MINI-BAG PLUS 50 ML IV SCH ×3 (06:53→19:56)
[2021-07-12] MEDS ORDERED: TAMSULOSIN 0.4 MG CAP PO SCH (09:00)
--- NOTE | 2021-07-12 09:01 | SMCUROLCON ---
Urology Consultation General Date of Consultation 07/12/21 Reason For Consultation 20 yo woman with right ureteral stone History of Present Illness Patient with a 9mm obstructing stone on the right UVJ with moderate hydronephrosis and no ureteral jets. She had been on Macrobid throughout for MDR E. Coli UTI in February 2021. Pt with leukocytosis WBC 15 k, nl Cr. I recommended fluid hydration, pain control, urine culture, broad spectrum IV antibiotics and short course tamsulosin for MET. Will give trial of conservative management and follow up urine culture and evaluate later. If pain persists and stone does not pass will offer insertion of right ureteral stent. Medications Current Medications Current Medications Medications (Trade) Dose Ordered Sig/Syd Route PRN Reason Start Time Stop Time Status Last Admin Dose Admin Acetaminophen (Tylenol Tab) 975 mg Q6H PO 07/12/21 03:00 07/12/21 03:53 Ceftriaxone Sodium 1 gm/ Dextrose 50 ml @ 100 mls/hr Q24H IV 07/12/21 03:00 07/12/21 04:17 DC 07/12/21 03:53 Diphenhydramine HCl (Benadryl) 12.5 mg Q4HP PRN IV ITCHING 07/12/21 05:30 Home Med (Home Med List Complete!) ASDIRECTED XX 07/12/21 02:00 07/12/21 02:16 DC Lactated Ringer's 1,000 ml @ 125 mls/hr Q8H IV 07/12/21 02:15 07/12/21 03:53 Morphine Sulfate (Morphine Sulfate In 0.9%Nacl Iv Bag) Concentration 1 mg/ml ASDIRECTED PRN IV SEE LABEL COMMENTS 07/12/21 05:30 07/12/21 06:47 Morphine Sulfate (Morphine Sulfate Inj) 2 mg Q4H PRN IV MODERATE/SEVERE PAIN (PS 5-10) 07/12/21 03:05 07/12/21 06:35 DC Naloxone HCl (Narcan) 0.1 mg Q5MP PRN IV SEE LABEL COMMENTS 07/12/21 05:30 Non-Formulary Medication (Epidural/IT RISK AND ASSURANCE MANAGER Slater) USE THIS ENTRY TO VEND ... Q1M PRN XX SEE LABEL COMMENTS 07/12/21 05:30 Ondansetron HCl (ZOFRAN INJection) 4 mg Q6HP PRN IV NAUSEA 07/12/21 05:30 Piperacillin Sod/ Tazobactam Sod 3.375 gm/Dextrose 50 ml @ 50 mls/hr Q6H IV 07/12/21 08:00 07/12/21 06:53 Sodium Chloride 1,000 ml @ 15 mls/hr Q24H IV 07/12/21 04:35 07/12/21 05:09 DC Tamsulosin HCl (Flomax) 0.4 mg DAILY PO 07/12/21 09:00 Allergies Allergies: Coded Allergies: No Known Allergies (Unverified , 01/10/20) Vital Signs/I&O Vital Signs Date Time Temp Pulse Resp B/P (MAP) Pulse Ox O2 Delivery O2 Flow Rate FiO2 07/12/21 06:54 104 18 141/75 (97) Room Air 07/12/21 05:10 98.5 98 I&O- Last 24 Hours up to 6 AM 07/12/21 06:00 Intake Total 1050 ml Output Total 400 ml Balance 650 ml Laboratory Data 24H Labs Laboratory Tests 2 07/12/21 01:45: Urine Color YELLOW, Urine Appearance HAZY, Urine pH 7.0, Urine Specific [place] 1.013, Urine Protein 2+H, Urine Glucose (UA) NEGATIVE, Urine Ketones NEGATIVE, Urine Blood NEGATIVE, Urine Nitrite NEGATIVE, Urine Bilirubin NEGATIVE, Urine Urobilinogen 0.2, Urine Leukocyte Esterase TRACEH, Urine WBC (Auto) 17H, Urine RBC (Auto) 4H, Urine Hyaline Casts (Auto) 0, Urine Bacteria (Auto) NEGATIVE, Urine Squamous Epithelial Cells 4, Urine Amorphous Sediment SMALLH, Urine Mucus (Auto) SMALL, Urine Sperm (Auto) 07/12/21 02:04: Nucleated Red Blood Cells % (auto) 0.0, Anion Gap 6L, Glomerular Filtration Rate > 60.0, Calcium Level 9.6, Total Bilirubin 0.2, Aspartate Amino Transf (AST/SGOT) 9, Alanine Aminotransferase (ALT/SGPT) 16, Alkaline Phosphatase 81, Total Protein 7.1, Albumin 3.2, Albumin/Globulin Ratio 0.8L 07/12/21 06:12: Coronavirus (COVID-19)(PCR) NEGATIVE CBC/BMP Laboratory Tests 07/12/21 02:04 Microbiology Microbiology 07/12/21 Urine Culture, Received Pending ADELINE OCAMPO M.D. Jul 12, 2021 09:01
--- NOTE | 2021-07-12 09:31 | IPNPDOC ---
Text Note Date of Service The patient was seen on 07/12/21. NOTE Ms. Talbot is a 20yo at 28+6wks , admitted early this am for flank pain. A BPP was completed this am and normal. Patient has a 9mm stone on right side with moderate hydronephrosis and no ureteral jets on the right. Urology was consulted and patient currently on zosyn and flomax per their recommendations. Currently on Morphine DIRECTOR OF CONSULTING SERVICES for pain. S: States the morphine is not helping very much with the pain. Also having Lower right abd pain. Reports the heating pad is more beneficial. Reporting good movements, no contractions. Some nausea with breakfast. Spouse at bedside for support. O: VS 0709: 0724: BP 120/78, P98, Temp 98.5 0820: BP 134/82, P 106 Unlabored breathing. Appears comfortable sitting in bed. Pain to right flank on palpation. Lungs CTA bilaterally. Heart RRR. BS present x4 quad. Abdomen non-tender to palpation. A/P 20yo G 1 P 0 at 28+6 wks gestation admitted for Flank pain, found to have obstructing right kidney stone. VSS- afebrile this entire stay. Noted elevated BP at admission. Possibly related to pain. BPP this am normal with normal NST. Plan NST twice a day. Urology due to come assess patient later today to discuss plan of care. Continue IV hydration, straining urine, zosyn. Will discuss option to change to different pain medication option. Consult physician service as needed VS,Federicobone, I+O VS, Federicobone, I+O Laboratory Tests 07/12/21 02:04 Vital Signs Date Time Temp Pulse Resp B/P (MAP) Pulse Ox O2 Delivery O2 Flow Rate FiO2 07/12/21 06:54 104 18 141/75 (97) Room Air 07/12/21 05:10 98.5 98 I&O- Last 24 Hours up to 6 AM 07/12/21 06:00 Intake Total 1050 ml Output Total 400 ml Balance 650 ml CORRINE ZAVALA CNM Jul 12, 2021 09:31
[2021-07-12] MEDS ORDERED: OMEPRAZOLE 20 MG CAP PO SCH (21:00)
[2021-07-12] MEDS ORDERED: propofoL 200 MG/20 ML VIAL As Ordered ONE ×2 (21:43→22:43)
[2021-07-12] MEDS ORDERED: fentaNYL 100 MCG/2 ML INJECTION (J3010) As Ordered ONE (21:44)
[2021-07-12] MEDS ORDERED: CONRAY-60 60% 50ML VIAL (Q9961) As Ordered ONE (21:50)
[2021-07-12] MEDS ORDERED: fentaNYL 100 MCG/2 ML INJECTION (J3010) IV PRN (23:15)
--- NOTE | 2021-07-12 23:36 | ROOPDOC ---
[facility] Report Of Operation Report of Operation DATE OF PROCEDURE: 07/12/21 PREPROCEDURE DIAGNOSES: Right ureteral stone and hydronephrosis. POSTPROCEDURE DIAGNOSES: Same. PROCEDURE PERFORMED: 1. Cystoscopy 2. Right retrograde pyelogram 3. Insertion on right ureteral stent. SURGEON: Eric Lauren MD SAFETY INSPECTOR: None ANESTHESIA: Dr. Gomez - ASHOK ESTIMATED BLOOD LOSS: 0 cc COMPLICATIONS: none. REMARKS: no laser lithotripsy. FINDINGS: 9mm right UVJ stone SPECIMENS REMOVED: right ureteral urine culture pallock catheter PROCEDURE NOTE: 20 yo female 28 weeks with a right UVJ stone and hydronephrosis. No prior nephrolithiasis. Patient had E coli UTI February 2021 and has been on Macrobid. She was admitted with WBC 15k and intractable pain. She was hydrated and given Zosyn IV antibiotics. Patient now for primary cystoscopy, and insertion of right double J stent. DESCRIPTION OF PROCEDURE: Patient was consented in the holding area. She was brought to the OR and time out performed and placed in the supine position. Her abdomen and fetus was shielded with a lead apron. He then underwent MAC anesthesia, she was on Zosyn IV and was placed in the dorsal lithotomy position, prepped and draped in the usual sterile fashion. A 21 Fr cystoscope was inserted into the bladder the bladder was unremarkable without stones or lesions. A 0.038 hybrid wire was inserted in the right ureteral orifice. A 5 Fr open ended catheter was used to collect a post hydronephrotic drip and sent for culture. We then performed retrograde pyelography with single shot fluoroscopy to identify the renal pelvis with 5 cc of 50:50 [place]. The wire reinserted and a 6 Fr multilength double J ureteral stent was inserted in the renal pelvis and b ladder. The bladder drained and the cystoscope removed. The patient tolerated the procedure well. There were no complications. She will follow up with [facility] to schedule another post stent removal or ureteroscopy and laser lithotripsy and stent removal in the future. ERIC LAUREN M.D. Jul 12, 2021 23:36
[2021-07-13] VITALS (7 sets, daily range): BP systolic 111–137; BP diastolic 57–80
[2021-07-13] MEDS: NS 1,000 ML IV SCH ×2 (01:02→08:48)
[2021-07-13] MEDS: PIPERACILLIN/TAZOBACTAM SOD 3.375 GM in D5W MINI-BAG PLUS 50 ML IV SCH ×2 (02:21→08:48)
[2021-07-13] MEDS: ACETAMINOPHEN 325 MG TAB PO SCH ×2 (02:22→08:48)
[2021-07-13] MEDS ORDERED: oxyCODONE 5MG TAB PO PRN (07:00)
--- NOTE | 2021-07-13 07:07 | IPNPDOC ---
Obstetrical Progress Note Date of Service Jul 13, 2021 Subjective 20 yo G1 @ 29W0D who is admitted for suspected pyelonephritis with a 9mm right ureteral stone s/p stent placement last night. she is on zosyn and has UCX pending. this morning, patient is feeling better with pain much improved. since surgery she has only needed tylenol for pain control. Vital Signs Label Value Date Time Patient Temperature 98.9 degrees F 07/13/21599 Temperature Source Temporal 07/13/21 06 Pulse 103 07/13/21599 Respiratory Rate 18 bpm 07/13/21599 Blood Pressure Assessment 132/78 (96) 07/13/21 06 Source Automatic Cuff (NIBP) Bedside Pulse Oximetry 97 % 07/13/21599 Item Value Date Time Oxygen Delivery Method Room Air 07/13/21599 GEN: appropriate Lungs: Normal rate of breathing Abd: gravid, fundus non tender, right flank pain now improved, just muscle soreness on palpation ext: grossly normal Reactive NST last night A/P 20 yo G1 @ 29W0D who is admitted for suspected pyelonephritis with a 9mm right ureteral stone s/p stent placement last night. she is on zosyn and has UCX pending. Hemodynamically stable. -switched to Tylenol and Oxycodone PRN for pain -await blood culture then switch to oral antibiotics. -Can discharge home today if cultures come back with close F/U next week -NST BID Objective Vital Signs Date Time Temp Pulse Resp B/P (MAP) Pulse Ox O2 Delivery O2 Flow Rate FiO2 07/13/21 06:00 98.9 103 18 132/78 (96) 97 Room Air 07/12/21 23:35 2.0 ALBA VELA MD Jul 13, 2021 07:07
--- NOTE | 2021-07-13 08:56 | REP ---
INDICATION: CYSTOSCOPY AND STENT PLACEMENT. COMPARISON: None. TECHNIQUE: Intraoperative fluoroscopic imaging using portable C-arm technique with shielding of the lower abdomen and pelvis. FINDINGS: Right-sided hydronephrosis noted with subsequent right ureteral stent placement. Total fluoroscopic time 5 seconds IMPRESSION: Right-sided hydronephrosis with right ureteral stent placement. <Electronically signed by Lenin Madden > 07/13/21 [id number]
[2021-07-13 09:36] LABS: BLOOD UREA NITROGEN 8 MG/DL (7-18); CALCIUM LEVEL 8.2 MG/DL (8.5-10.1); CARBON DIOXIDE LEVEL 22 MEQ/L (21-32); CHLORIDE LEVEL 108 MEQ/L (98-107); CREATININE FOR GFR 0.61 MG/DL (0.55-1.30); GLOMERULAR FILTRATION RATE > 60.0 (>60); GLUCOSE, FASTING 60 MG/DL (70-100); POTASSIUM SERUM 3.7 MEQ/L (3.5-5.1); SODIUM LEVEL 139 MEQ/L (136-145)
[2021-07-13 10:00] LABS: BASO # 0.1 10^3/uL (0.0-0.2); BASO % 0.5 % (0.0-1.0); EOS # 0.4 10^3/uL (0.0-0.5); EOS % 3.3 % (0.0-3.0); HEMATOCRIT 27.8 % (36.0-47.0); HEMOGLOBIN 9.4 g/dl (12.0-15.5); LYMPH # 1.7 10^3/uL (1.5-5.0); LYMPH % 14.4 % (24.0-44.0); MEAN CORPUSCULAR HEMOGLOBIN 29.4 pg (27.0-33.0); MEAN CORPUSCULAR HGB CONC 33.8 g/dl (32.0-36.5); MEAN CORPUSCULAR VOLUME 86.9 fl (80.0-96.0); MONO % 8.3 % (2.0-8.0); NEUTROPHILS # 8.5 10^3/uL (1.5-8.5); NEUTROPHILS % 73.2 % (36.0-66.0); PLATELET COUNT, AUTOMATED 259 10^3/uL (150-450); WHITE BLOOD COUNT 11.6 10^3/uL (4.0-10.0)
[2021-07-13] MEDS ORDERED: ACET32TAB PO (11:51)
[2021-07-13] MEDS ORDERED: OXYC-517 PO (11:51)
--- NOTE | 2021-07-13 11:56 | OBDS ---
[facility] Obstetrical Discharge Sum. 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
--- NOTE | 2021-07-13 13:45 | IPNPDOC ---
Subjective Review oF Systems Chief Complaint The patient is a 20-year-old female admitted right ureter stone and UTI. Events since Last Encounter 20 yo woman 28 week POD 1 s/p cystoscopy and right ureteral stent insertion 07/12/21 for a 9mm right UVJ stone and pyuria Now with improved pain. WBC decreased. Pt was converted to PO abx (bactrim) and will be sent home and f/u with OB to check final urine culture She should call [facility] to schedule f/u in 1 month and if she has passed stone consider stent removal but if not will need ureteroscopy post Objective Vital Signs/I&O Vital Signs Date Time Temp Pulse Resp B/P (MAP) Pulse Ox O2 Delivery O2 Flow Rate FiO2 07/13/21 10:04 98.7 111 18 112/59 (76) 100 Room Air 07/12/21 23:35 2.0 I&O- Last 24 Hours up to 6 AM 07/13/21 06:00 Intake Total 2330 ml Output Total 970 ml Balance 1360 ml Laboratory Data Labs 24H Laboratory Tests 2 07/13/21 08:45: Immature Granulocyte % (Auto) 0.3, Neutrophils (%) (Auto) 73.2H, Lymphocytes (%) (Auto) 14.4L, Monocytes (%) (Auto) 8.3H, Eosinophils (%) (Auto) 3.3H, Basophils (%) (Auto) 0.5, Neutrophils # (Auto) 8.5, Lymphocytes # (Auto) 1.7, Monocytes # (Auto) 1.0H, Eosinophils # (Auto) 0.4, Basophils # (Auto) 0.1, Nucleated Red Blood Cells % (auto) 0.0, Anion Gap 9, Glomerular Filtration Rate > 60.0, Calcium Level 8.2L CBC/BMP Laboratory Tests 07/13/21 08:45 Microbiology Microbiology 07/12/21 Urine Culture - Final, Complete 07/12/21 Urine Culture, Received Pending Assessment/Plan Date Seen The patient was seen on 07/13/21. Plan/VTE VTE Prophylaxis Ordered?: No Plan f/u [facility] ADELINE OCAMPO M.D. Jul 13, 2021 13:45
== END 2021-07-13 13:28 | disposition home or self-care (01) | DRG 818 ==
LOC: M LDO 01:22 → M LDI 03:15 → M OBS 07-13 00:20
PROVIDERS: ADMIT Obstetrics & Gynecology; ATTEND Obstetrics & Gynecology
PROC: 0T768DZ Dilation of Right Ureter with Intraluminal Device, Via Natural or Artificial Opening Endoscopic (ICD-10-PCS; principal; 2021-07-12 19:00)
DX: O99.891 Other specified diseases and conditions complicating pregnancy (principal); N13.2 Hydronephrosis with renal and ureteral calculous obstruction; Z3A.28 28 weeks gestation of pregnancy; O99.613 Diseases of the digestive system complicating pregnancy, third trimester; K21.9 Gastro-esophageal reflux disease without esophagitis; Z79.899 Other long term (current) drug therapy

== ENCOUNTER → 2021-08-05 | Outpatient (REF) | payer OTHER ==
[~2021-08-05] MED LIST changes: +ACET32TAB PO; +BENA25CA4 PO; +DITR5TAB PO; +FLOM0.4C39 PO; +IBUP-1022 PO; +OMEP-173 PO; -OMEP-221 PO; +OMEP40CA5 PO; +OXYC-517 PO; +OXYC1TAB23 PO; +TUMS750C22 PO
[2021-08-05 14:15] LABS: APPEARANCE, URINE CLOUDY (CLEAR); BACTERIA, URINE AUTO 2+ (NEGATIVE); BILIRUBIN, URINE AUTO NEGATIVE (NEGATIVE); BLOOD, URINE BLOOD 3+ (NEGATIVE); COLOR, URINE AMBER (YELLOW); GLUCOSE, URINE (UA) AUTO NEGATIVE (NEGATIVE); KETONE, URINE AUTO NEGATIVE (NEGATIVE); LEUKOCYTE ESTERASE, URINE AUTO 3+ (NEGATIVE); NITRITE, URINE AUTO NEGATIVE (NEGATIVE); PROTEIN, URINE AUTO 3+ mg/dL (NEGATIVE); RBC, URINE AUTO TNTC /HPF (0-3); SPECIFIC GRAVITY URINE AUTO 1.019 (1.002-1.035); SQUAMOUS EPITHELIAL CELL UR AU 23 /HPF (0-6); TRANSITIONAL EPITHELIAL AUTO 2 /HPF; UROBILINOGEN, URINE AUTO 0.2 mg/dL (0.0-2.0); WBC, URINE AUTO TNTC /HPF (0-3)
== END ==
LOC: M SMT 12:56
PROVIDERS: ATTEND Physician Assistant
DX: N23 Unspecified renal colic (principal)
CPT/HCPCS: 81001; 87086; G0463

== ENCOUNTER 2021-08-08 23:30 | Outpatient (CLI) | payer OTHER ==
[~2021-08-08] VITALS: Ht 165.1 cm; Wt 84.9 kg
[~2021-08-08 23:30] MED LIST changes: -DITR5TAB PO; -FLOM0.4C39 PO; -IBUP-1022 PO; -OMEP-173 PO; +OMEP-221 PO; -OMEP40CA5 PO; -OXYC1TAB23 PO; -TUMS750C22 PO
[2021-08-08 23:45] VITALS: BP 133/77
[2021-08-09 02:03] VITALS: BP 138/70
--- NOTE | 2021-08-09 04:47 | REPVR ---
PROCEDURE INFORMATION: Exam: US Retroperitoneal Limited, Kidneys Exam date and time: 08/09/2021 1:20 AM Age: 20 years old Clinical indication: Condition or disease; Kidney or ureter condition; Calculus (stone) in ureter; ; Prior surgery; Surgery date: <1 month; Additional info: Acute urinary retention, known 9mm right ureteral stone TECHNIQUE: Imaging protocol: Real-time ultrasound of the retroperitoneum with image documentation. Examination was focused on the kidneys. COMPARISON: RENAL US 07/12/2021 3:13 AM FINDINGS: Right kidney: The right kidney measures 12.2 cm in its cephalocaudad dimension and 7.5 x 5.5 cm in diameter. No mass, cyst or hydronephrosis. There are 2 nonobstructing calculi measuring 6 mm and 8 mm. Left kidney: The left kidney measures 11.6 cm in its cephalocaudad dimension and 6.6 x 4.8 cm in diameter. No mass or cyst. There is minimal pelviectasis. Bladder: A stent is noted in the urinary bladder. Gestation: Single intrauterine fetus in cephalic presentation. heartbeat of 136 bpm. IMPRESSION: 1. Minimal left renal pelviectasis. 2. Nonobstructing right renal calculi measuring 6 8 mm. 3. Stent in the urinary bladder. 4. Single live intrauterine fetus. Electronically signed by: Randolph Calle On 08/09/2021 04:46:36 AM
== END 2021-08-09 02:18 | disposition home or self-care (01) ==
LOC: M LDO 23:30
PROVIDERS: ATTEND Obstetrics & Gynecology
DX: O26.893 Other specified pregnancy related conditions, third trimester (principal); R10.2 Pelvic and perineal pain; Z3A.32 32 weeks gestation of pregnancy
CPT/HCPCS: 59025; 76775; 76815; G0378; G0463

== ENCOUNTER → 2021-08-15 | Outpatient (CLI) | payer OTHER ==
[~2021-08-15] MED LIST changes: +DITR5TAB PO; +FLOM0.4C39 PO; +IBUP-1022 PO; +OMEP-173 PO; -OMEP-221 PO; +OMEP40CA5 PO; +OXYC1TAB23 PO; +TUMS750C22 PO
[2021-08-15 17:17] LABS: BLOOD UREA NITROGEN 7 MG/DL (7-18); CALCIUM LEVEL 8.7 MG/DL (8.5-10.1); CARBON DIOXIDE LEVEL 24 MEQ/L (21-32); CHLORIDE LEVEL 106 MEQ/L (98-107); CREATININE FOR GFR 0.61 MG/DL (0.55-1.30); GLOMERULAR FILTRATION RATE > 60.0 (>60); GLUCOSE, FASTING 77 MG/DL (70-100); POTASSIUM SERUM 4.2 MEQ/L (3.5-5.1); SODIUM LEVEL 137 MEQ/L (136-145)
== END ==
LOC: M PLALAB 15:05
PROVIDERS: ATTEND Physician Assistant
DX: N23 Unspecified renal colic (principal)

== ENCOUNTER 2021-08-18 18:49 | Outpatient (CLI) | payer OTHER ==
[~2021-08-18] VITALS: Ht 165.1 cm; Wt 85.6 kg
[~2021-08-18 18:49] MED LIST changes: -DITR5TAB PO; -FLOM0.4C39 PO; -IBUP-1022 PO; -OMEP-173 PO; +OMEP-221 PO; -OMEP40CA5 PO; -OXYC1TAB23 PO; -TUMS750C22 PO
[2021-08-18 19:12] VITALS: BP 128/87
--- NOTE | 2021-08-18 20:00 | IPNPDOC ---
Text Note Date of Service The patient was seen on 08/18/21. NOTE Pamela Yanez is a 20yo G1 well known to me, she has a right ureteral stent for a 9mm kidney stone. She is now around 34 weeks and called the pager to report contractions every 8 minutes; not painful but a tightness she is aware of. Given her history of current stent in place I did advise that she come to labor and delivery for evaluation. She is on Bactrim prophylaxis for urinary infections. She reports no dysuria, hematuria or other UTI symptoms of which she is very familiar. Denies vaginal discharge or signs of infection. Denies vaginal bleeding, loss of fluid. Endorses positive movement. 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 I discussed the difference between contractions and labor with Pamela and she indicated understanding. Return precautions given including vaginal bleeding, loss of fluid, increasing contractions, decreased movement, signs of urinary or vaginal infections. All questions answered. Hetal Martinez, HETAL GOMEZ DO Aug 18, 2021 20:00
== END 2021-08-18 20:07 | disposition home or self-care (01) ==
LOC: M LDO 18:49
PROVIDERS: ATTEND Obstetrics & Gynecology
DX: O47.03 False labor before 37 completed weeks of gestation, third trimester (principal); O23.03 Infections of kidney in pregnancy, third trimester; N20.0 Calculus of kidney; Z3A.34 34 weeks gestation of pregnancy
CPT/HCPCS: 59025; G0378; G0463

== ENCOUNTER 2021-08-21 16:18 | Outpatient (CLI) | payer OTHER ==
[~2021-08-21] VITALS: Ht 165.1 cm; Wt 85.3 kg
[2021-08-21 16:28] VITALS: BP 143/91
[2021-08-21 16:30] VITALS: BP 125/93
--- NOTE | 2021-08-21 17:27 | IPNPDOC ---
Text Note Date of Service The patient was seen on 08/21/21. NOTE Pamela Talbot is a 20yo G1 at 34+4 presents for leakage of clear fluid, she states a dribble for the past few hours. Denies recent intercourse. Denies vaginal bleeding. Endorses positive movement. Denies palpitations, lightheadedness, dizziness, chest pain or shortness of breath. 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 Negative nitrazine on fluid sample and negative ferning. Cervix visually closed. bedside ultrasound: siup, cephalic, +FM, +FCA, MVP 5.3cm Reactive NST, rare contractions a/p No evidence of rupture of membranes at this time. No signs of labor either, safe to discharge home. Return precautions given including vaignal bleeding, leakage of fluid, regular contractions or decreased movement. All questions answered and she expressed understanding. Hetal Martinez DO VS,[place], I+O VS, [place], I+O Vital Signs Date Time Temp Pulse Resp B/P (MAP) Pulse Ox O2 Delivery O2 Flow Rate FiO2 08/21/21 16:30 129 125/93 (104) 08/21/21 16:26 97.9 18 HETAL MARTINEZ DO Aug 21, 2021 17:11
== END 2021-08-21 17:28 | disposition home or self-care (01) ==
LOC: M LDO 16:18
PROVIDERS: ATTEND Obstetrics & Gynecology
DX: O26.893 Other specified pregnancy related conditions, third trimester (principal); N89.8 Other specified noninflammatory disorders of vagina; Z3A.34 34 weeks gestation of pregnancy
CPT/HCPCS: 59025; 76815; 87081; G0378; G0463

== ENCOUNTER 2021-09-22 07:45 | Inpatient (IN) | payer OTHER ==
[~2021-09-22] VITALS: Ht 165.1 cm; Wt 90.6 kg
[2021-09-22] VITALS (15 sets, daily range): BP systolic 112–144; BP diastolic 60–88
[2021-09-22] MEDS: LR 1,000 ML IV SCH (02:30)
[~2021-09-22 07:45] MED LIST changes: -OMEP-221 PO; +OMEP40CA5 PO
[2021-09-22] MEDS ORDERED: HOME MED LIST COMPLETE! XX SCH (07:50)
[2021-09-22] MEDS ORDERED: TUMS750C22 PO (08:03)
[2021-09-22] MEDS ORDERED: DITR5TAB PO (08:04)
[2021-09-22] MEDS ORDERED: OXYTOCIN DRIP 30 UNITS in IV 1 EA IV PRN ×4 (08:45)
[2021-09-22] MEDS ORDERED: TRANEXAMIC ACID INJection 1,000 MG in NS 100 ML IV PRN (08:45)
[2021-09-22] MEDS ORDERED: LIDOCAINE 1% MDV 20ML VIAL INFIL PRN (08:45)
[2021-09-22] MEDS ORDERED: CARBOPROST TROMETHAMINE 250 MCG/ML AMP IM PRN (08:45)
[2021-09-22] MEDS ORDERED: METHYLERGONOVINE MALEATE 0.2 MG/ML VIAL (J2210) IM PRN (08:45)
[2021-09-22] MEDS ORDERED: miSOPROStol 50MCG 1/2 TABLET SL ONE ×3 (09:05→18:30)
[2021-09-22 09:45] LABS: HEMOGLOBIN 9.7 g/dl (12.0-15.5); MEAN CORPUSCULAR HEMOGLOBIN 29.2 pg (27.0-33.0); MEAN CORPUSCULAR HGB CONC 33.4 g/dl (32.0-36.5); MEAN CORPUSCULAR VOLUME 87.3 fl (80.0-96.0); PLATELET COUNT, AUTOMATED 293 10^3/uL (150-450); RED BLOOD COUNT 3.32 10^6/uL (4.00-5.40); WHITE BLOOD COUNT 8.9 10^3/uL (4.0-10.0)
[2021-09-22] MEDS ORDERED: ACETAMINOPHEN 325 MG TAB PO ONE (10:20)
[2021-09-22] MEDS ORDERED: ACETAMINOPHEN 500 MG TAB PO PRN (19:25)
[2021-09-23] VITALS (48 sets, daily range): BP systolic 106–148; BP diastolic 54–94
[2021-09-23] MEDS ORDERED: miSOPROStol 50MCG 1/2 TABLET PO ONE (00:30)
[2021-09-23] MEDS ORDERED: FENTANYL 2MCG/ML ROPIVACAINE 0.2% IN 0.9% NACL 100ML IVBAG As Ordered ONE (04:28)
[2021-09-23] MEDS ORDERED: OXYTOCIN DRIP 30 UNITS in IV 1 EA IV SCH (04:35)
[2021-09-23] MEDS ORDERED: EPIDURAL COMMENT XX SCH (04:40)
[2021-09-23] MEDS ORDERED: LACTATED RINGER'S 1000 ML IV PRN (04:40)
[2021-09-23] MEDS ORDERED: EPIDURAL/PCA KEYS XX PRN (04:40)
[2021-09-23] MEDS ORDERED: REFRIGERATOR IV KEYS XX PRN (04:40)
[2021-09-23] MEDS ORDERED: FENTANYL/ROPIVACAINE/NACL BAG 100 ML EPIDURAL SCH (04:40)
[2021-09-23] MEDS ORDERED: ePHEDrine SULFATE 25 MG/5 ML(5MG/ML) SYRINGE IV PRN (04:40)
[2021-09-23] MEDS ORDERED: ONDANSETRON 4MG/2ML VIAL IV PRN (04:40)
[2021-09-23] MEDS ORDERED: diphenhydrAMINE 50MG/ML VIAL (J1200) IV PRN (04:40)
[2021-09-23] MEDS ORDERED: NALOXONE INJ 0.4MG/1ML VIAL (J2310 PER 1MG) IV PRN (04:40)
[2021-09-23] MEDS: LR 1,000 ML IV SCH ×4 (07:58→20:25)
[2021-09-23 09:51] LABS: APPEARANCE, URINE CLOUDY (CLEAR); BACTERIA, URINE AUTO 2+ (NEGATIVE); BILIRUBIN, URINE AUTO NEGATIVE (NEGATIVE); BLOOD, URINE BLOOD 3+ (NEGATIVE); COLOR, URINE AMBER (YELLOW); GLUCOSE, URINE (UA) AUTO NEGATIVE (NEGATIVE); KETONE, URINE AUTO NEGATIVE (NEGATIVE); LEUKOCYTE ESTERASE, URINE AUTO 3+ (NEGATIVE); MUCUS, URINE MODERATE (NEGATIVE); NITRITE, URINE AUTO NEGATIVE (NEGATIVE); PROTEIN, URINE AUTO 3+ mg/dL (NEGATIVE); RBC, URINE AUTO TNTC /HPF (0-3); SPECIFIC GRAVITY URINE AUTO 1.024 (1.002-1.035); SQUAMOUS EPITHELIAL CELL UR AU 6 /HPF (0-6); TRANSITIONAL EPITHELIAL AUTO 1 /HPF; UROBILINOGEN, URINE AUTO 0.2 mg/dL (0.0-2.0); WBC, URINE AUTO TNTC /HPF (0-3)
[2021-09-23] MEDS ORDERED: OXYTOCIN INJ 10 UNITS/ML VIAL (J2590) As Ordered ONE (10:29)
[2021-09-23] MEDS ORDERED: OXYTOCIN INJ 10 UNITS/ML VIAL (J2590) IV ONE (11:30)
[2021-09-23 11:38] LABS: CORD GAS ABE A -2.7; CORD GAS ABE V -1.9; CORD GAS HCO3 A 18.7 MEQ/L; CORD GAS HCO3 V 20.1 MEQ/L; CORD GAS O2 SAT A 80.9 %; CORD GAS O2 SAT V 81.6 %; CORD GAS PCO2 A 26.3 mmHg; CORD GAS PH A 7.47 UNITS; CORD GAS PH V 7.459 UNITS; CORD GAS PO2 A 32.5 mmHg; CORD GAS PO2 V 33.5 mmHg; CORD GAS SBC A 21.8 MEQ/L; CORD GAS SBC V 22.4 MEQ/L; CORD GAS TCO2 A 19.5 MEQ/L
[2021-09-23] MEDS: cefTRIAXone SOD 1 GM in D5W MINI-BAG PLUS 50 ML IV SCH (11:56)
[2021-09-23] MEDS ORDERED: ACETAMINOPHEN TAB 650MG DOSE (2X325MG) PO PRN (12:25)
[2021-09-23] MEDS ORDERED: ANUSOL HC CREAM 30GM TOP PRN (12:25)
[2021-09-23] MEDS ORDERED: RHOGAM 300 MCG (1500 IU) INJ (J2790) IM SCH (12:25)
[2021-09-23] MEDS ORDERED: MEASLES,MUMPS,RUBELLA VACCINE INJ (MMR-II) (90707) SC SCH (12:25)
[2021-09-23] MEDS ORDERED: METHYLERGONOVINE MALEATE 0.2 MG TAB PO PRN (12:25)
[2021-09-23] MEDS ORDERED: DOCUSATE SODIUM 100MG CAPSULE PO PRN (12:25)
[2021-09-23] MEDS ORDERED: DIBUCAINE 1% OINTMENT 30GM TOP PRN (12:25)
[2021-09-23] MEDS ORDERED: MOM 30ML SUSPENSION UDC PO PRN (12:25)
[2021-09-23] MEDS ORDERED: OXYTOCIN DRIP 30 UNITS in IV 1 EA IV ONE (13:00)
[2021-09-23] MEDS: IBUPROFEN 600MG TAB PO PRN ×3 (13:55→21:34)
[2021-09-23] MEDS ORDERED: METHYLERGONOVINE MALEATE 0.2 MG/ML VIAL (J2210) IM PRN (15:00)
[2021-09-23] MEDS: ACETAMINOPHEN 500 MG TAB PO PRN ×2 (15:35→19:07)
[2021-09-23 20:01] LABS: MEAN CORPUSCULAR HEMOGLOBIN 29.2 pg (27.0-33.0); MEAN CORPUSCULAR HGB CONC 33.3 g/dl (32.0-36.5); MEAN CORPUSCULAR VOLUME 87.6 fl (80.0-96.0); PLATELET COUNT, AUTOMATED 221 10^3/uL (150-450); RED BLOOD COUNT 2.26 10^6/uL (4.00-5.40); WHITE BLOOD COUNT 15.5 10^3/uL (4.0-10.0)
[2021-09-23 20:06] LABS: HEMATOCRIT 19.8 % (36.0-47.0)
[2021-09-23 20:07] LABS: HEMOGLOBIN 6.6 g/dl (12.0-15.5)
[2021-09-24] VITALS (9 sets, daily range): BP systolic 111–135; BP diastolic 58–81
[2021-09-24] MEDS: cefTRIAXone SOD 1 GM in D5W MINI-BAG PLUS 50 ML IV SCH ×3 (01:36→23:46)
[2021-09-24 03:02] LABS: HEMATOCRIT 28.4 % (36.0-47.0); HEMOGLOBIN 9.2 g/dl (12.0-15.5); MEAN CORPUSCULAR HEMOGLOBIN 28.6 pg (27.0-33.0); MEAN CORPUSCULAR HGB CONC 32.4 g/dl (32.0-36.5); MEAN CORPUSCULAR VOLUME 88.2 fl (80.0-96.0); PLATELET COUNT, AUTOMATED 198 10^3/uL (150-450); RED BLOOD COUNT 3.22 10^6/uL (4.00-5.40)
[2021-09-24] MEDS: LR 1,000 ML IV SCH (04:25)
[2021-09-24 06:58] LABS: HEMATOCRIT 27.1 % (36.0-47.0); HEMOGLOBIN 8.9 g/dl (12.0-15.5); MEAN CORPUSCULAR HEMOGLOBIN 28.3 pg (27.0-33.0); MEAN CORPUSCULAR HGB CONC 32.8 g/dl (32.0-36.5); PLATELET COUNT, AUTOMATED 210 10^3/uL (150-450); RED BLOOD COUNT 3.15 10^6/uL (4.00-5.40); WHITE BLOOD COUNT 13.9 10^3/uL (4.0-10.0)
[2021-09-24] MEDS: PRENATAL VITAMINS CHEWABLE TABLET PO SCH (07:49)
[2021-09-24] MEDS ORDERED: ONDANSETRON 4MG/2ML VIAL IV ONE (09:30)
[2021-09-24] MEDS ORDERED: IRON SUCROSE 200 MG in NS 100 ML OVER 1 HR IV ONE (10:00)
[2021-09-24] MEDS: IBUPROFEN 600MG TAB PO PRN (18:49)
[2021-09-25] MEDS: ACETAMINOPHEN 500 MG TAB PO PRN ×3 (00:16→13:34)
[2021-09-25 06:00] VITALS: BP 121/74
[2021-09-25] MEDS: PRENATAL VITAMINS CHEWABLE TABLET PO SCH (07:46)
[2021-09-25] MEDS: cefTRIAXone SOD 1 GM in D5W MINI-BAG PLUS 50 ML IV SCH (11:16)
[2021-09-25] MEDS ORDERED: IBUP-1022 PO (12:46)
[2021-09-25 18:11] VITALS: BP_SYST 144; BP_SYST 155; BP_DIAS 71; BP_DIAS 77
== END 2021-09-25 15:00 | disposition home or self-care (01) | DRG 806 ==
LOC: M LDI 07:45 → M OBS 09-23 15:06
PROVIDERS: ADMIT Advanced Practice Midwife; ATTEND Advanced Practice Midwife
PROC: 3E0P7GC Introduction of Other Therapeutic Substance into Female Reproductive, Via Natural or Artificial Opening (ICD-10-PCS; 2021-09-22)
PROC: 10E0XZZ Delivery of Products of Conception, External Approach (ICD-10-PCS; principal; 2021-09-23)
PROC: 0HQ9XZZ Repair Perineum Skin, External Approach (ICD-10-PCS; 2021-09-23)
PROC: 30233N1 Transfusion of Nonautologous Red Blood Cells into Peripheral Vein, Percutaneous Approach (ICD-10-PCS; 2021-09-23)
DX: O76 Abnormality in fetal heart rate and rhythm complicating labor and delivery (principal); Z37.0 Single live birth; O23.33 Infections of other parts of urinary tract in pregnancy, third trimester; N20.0 Calculus of kidney; Z3A.39 39 weeks gestation of pregnancy; O99.62 Diseases of the digestive system complicating childbirth; K21.9 Gastro-esophageal reflux disease without esophagitis; Z86.16 Personal history of COVID-19; O99.02 Anemia complicating childbirth; D64.9 Anemia, unspecified; O69.81X0 Labor and delivery complicated by cord around neck, without compression, not applicable or unspecified; O77.0 Labor and delivery complicated by meconium in amniotic fluid; O40.3XX0 Polyhydramnios, third trimester, not applicable or unspecified; O62.2 Other uterine inertia; O70.0 First degree perineal laceration during delivery

== ENCOUNTER 2021-10-13 08:58 | Day surgery (SDC) | payer OTHER ==
[~2021-10-13] VITALS: Ht 165.1 cm; Wt 82.1 kg
[~2021-10-13 08:58] MED LIST changes: +DITR5TAB PO; +IBUP-1022 PO; +LIDOCAINE 1% MDV 20ML VIAL SQ PRN; +LR 1,000 ML IV ONE; +OMEP-173 PO; +TUMS750C22 PO; +ceFAZolin SOD 2 GM in IV 1 EA IV ONE
[2021-10-13] MEDS ORDERED: ONDANSETRON 4MG/2ML VIAL As Ordered ONE (10:21)
[2021-10-13] MEDS ORDERED: dexameTHASONE 4 MG/ML 1ML VIAL (J1100 PER 1MG) As Ordered ONE (10:21)
[2021-10-13] MEDS ORDERED: MIDAZOLAM INJ 2MG/2ML VIAL (J2250 PER 1MG) As Ordered ONE (10:21)
[2021-10-13] MEDS ORDERED: fentaNYL 100 MCG/2 ML INJECTION As Ordered ONE ×3 (10:21→13:47)
[2021-10-13] MEDS ORDERED: LIDOCAINE 2% 100MG/5ML SDV (FOR ANES.) As Ordered ONE (10:22)
[2021-10-13] MEDS ORDERED: propofoL 200 MG/20 ML VIAL As Ordered ONE ×3 (10:22→11:45)
[2021-10-13] MEDS ORDERED: LIDOCAINE 2% 5ML JELLY UROJET As Ordered ONE (10:50)
[2021-10-13] MEDS ORDERED: CONRAY-60 60% 50ML VIAL (Q9961) As Ordered ONE (12:01)
[2021-10-13] MEDS ORDERED: propofoL 500 MG/50 ML VIAL As Ordered ONE (12:01)
[2021-10-13] MEDS: fentaNYL 100 MCG/2 ML INJECTION IV PRN ×4 (13:49→14:04)
[2021-10-13] MEDS ORDERED: OXYC1TAB23 PO (13:52)
[2021-10-13] MEDS ORDERED: FLOM0.4C39 PO (13:52)
[2021-10-13] MEDS ORDERED: ONDANSETRON 4MG/2ML VIAL IV PRN (13:55)
[2021-10-13] MEDS ORDERED: LR 1,000 ML IV SCH (13:55)
[2021-10-13] MEDS ORDERED: oxyBUTYnin 5 MG TAB PO PRN (14:00)
[2021-10-13] MEDS ORDERED: PERCOCET 5MG/325MG TAB PO PRN (14:00)
[2021-10-13] MEDS ORDERED: KETOROLAC 30 MG/ML 1ML VIAL As Ordered ONE (14:03)
[2021-10-13] MEDS ORDERED: fentaNYL 100 MCG/2 ML INJECTION IV PRN (14:25)
[2021-10-13] MEDS ORDERED: KETOROLAC 30 MG/ML 1ML VIAL IV ONE (14:30)
[2021-10-13] MEDS: PERCOCET 5MG/325MG TAB PO PRN ×2 (14:37→15:33)
[2021-10-13] MEDS: HYDROmorphone HCL 2MG/ML 1ML VIAL IV PRN ×3 (14:49→15:04)
[2021-10-13 17:27] VITALS: BP 123/72
[2021-10-14] MEDS ORDERED: CEPH500C PO (16:47)
== END 2021-10-13 17:43 | disposition home or self-care (01) ==
LOC: M SDC 08:58
PROVIDERS: ATTEND Urology
DX: N20.0 Calculus of kidney (principal); F41.9 Anxiety disorder, unspecified; K21.9 Gastro-esophageal reflux disease without esophagitis; J45.909 Unspecified asthma, uncomplicated; Z79.899 Other long term (current) drug therapy; Z87.891 Personal history of nicotine dependence
CPT/HCPCS: 52356; 74420; 81025; 82365; C1769; C1894; C2617; J0690; J1100; J1170; J1885; J2250; J2405; J3010; Q9961

== ENCOUNTER 2021-10-14 13:22 | Emergency (ER) | payer OTHER ==
[~2021-10-14] VITALS: Ht 165.1 cm; Wt 81.8 kg
[~2021-10-14 13:22] MED LIST changes: +FLOM0.4C39 PO; -LIDOCAINE 1% MDV 20ML VIAL SQ PRN; -LR 1,000 ML IV ONE; +OXYC1TAB23 PO; -ceFAZolin SOD 2 GM in IV 1 EA IV ONE
[2021-10-14] MEDS ORDERED: NS 1,000 ML IV ONE (13:50)
[2021-10-14] MEDS ORDERED: KETOROLAC 30 MG/ML 1ML VIAL IV ONE (13:50)
[2021-10-14 14:40] LABS: BASO # 0.1 10^3/uL (0.0-0.2); BASO % 0.5 % (0.0-1.0); EOS # 0.1 10^3/uL (0.0-0.5); EOS % 0.8 % (0.0-3.0); HEMATOCRIT 33.3 % (36.0-47.0); HEMOGLOBIN 10.9 g/dl (12.0-15.5); LYMPH # 2.5 10^3/uL (1.5-5.0); LYMPH % 24.2 % (24.0-44.0); MEAN CORPUSCULAR HEMOGLOBIN 28.5 pg (27.0-33.0); MEAN CORPUSCULAR HGB CONC 32.7 g/dl (32.0-36.5); MEAN CORPUSCULAR VOLUME 86.9 fl (80.0-96.0); MONO # 0.9 10^3/uL (0.0-0.8); MONO % 8.8 % (2.0-8.0); NEUTROPHILS # 6.8 10^3/uL (1.5-8.5); NEUTROPHILS % 65.4 % (36.0-66.0); PLATELET COUNT, AUTOMATED 354 10^3/uL (150-450); RED BLOOD COUNT 3.83 10^6/uL (4.00-5.40); WHITE BLOOD COUNT 10.3 10^3/uL (4.0-10.0)
[2021-10-14 15:15] LABS: BLOOD UREA NITROGEN 11 MG/DL (7-18); CALCIUM LEVEL 8.2 MG/DL (8.5-10.1); CARBON DIOXIDE LEVEL 25 MEQ/L (21-32); CHLORIDE LEVEL 107 MEQ/L (98-107); CREATININE FOR GFR 0.95 MG/DL (0.55-1.30); GLOMERULAR FILTRATION RATE > 60.0 (>60); GLUCOSE, FASTING 80 MG/DL (70-100); POTASSIUM SERUM 3.5 MEQ/L (3.5-5.1); SODIUM LEVEL 137 MEQ/L (136-145)
[2021-10-14 15:18] LABS: HCG, SERUM QUALITATIVE NEGATIVE (NEGATIVE)
[2021-10-14 15:20] LABS: BILIRUBIN, URINE MANUAL NEGATIVE (NEGATIVE); GLUCOSE, URINE (UA) MANUAL NEGATIVE (NEGATIVE); KETONE, URINE MANUAL NEGATIVE (NEGATIVE); UROBILINOGEN, URINE MANUAL NORMAL (NORMAL)
[2021-10-14 15:30] LABS: RBC, URINE TNTC /hpf (0-3); SQUAMOUS EPITHELIAL CELL URINE SMALL AMOUNT /hpf (SMALL AMT)
[2021-10-14 15:31] LABS: BACTERIA, URINE SMALL AMOUNT; HYALINE CAST, URINE NONE SEEN /lpf (0-1)
[2021-10-14] MEDS ORDERED: ISOVUE-370 76% 100ML VIAL As Ordered ONE (15:32)
[2021-10-14] MEDS ORDERED: OXYCODONE/APAP 5MG/325MG(BULK FOR ED) 1 TABLET PO ONE (16:25)
[2021-10-14] MEDS ORDERED: CEPH500C PO (16:47)
[2021-10-14] MEDS ORDERED: PERCOCET 5MG/325MG TAB PO ONE (16:50)
[2021-10-14 17:02] VITALS: BP 132/80
== END 2021-10-14 17:18 | disposition home or self-care (01) ==
LOC: M ED 13:22
DX: N39.0 Urinary tract infection, site not specified (principal); J45.909 Unspecified asthma, uncomplicated; R00.0 Tachycardia, unspecified; Z79.899 Other long term (current) drug therapy
CPT/HCPCS: 71046; 74177; 80048; 81000; 81015; 83605; 84703; 85025; 87040; 87086; 87798; 93005; 96361; 96374; 99284; J1885; Q9967

== ENCOUNTER 2021-10-26 11:24 | Day surgery (SDC) | payer OTHER ==
[~2021-10-26] VITALS: Ht 165.1 cm; Wt 78.5 kg
[~2021-10-26 11:24] MED LIST changes: +CEPH500C PO; +LIDOCAINE 2% 100MG/5ML SDV (FOR ANES.) As Ordered ONE; +LR 1,000 ML IV ONE; +MIDAZOLAM INJ 2MG/2ML VIAL (J2250 PER 1MG) As Ordered ONE; +ONDANSETRON 4MG/2ML VIAL As Ordered ONE; +ceFAZolin SOD 2 GM in IV 1 EA IV ONE; +dexameTHASONE 4 MG/ML 1ML VIAL (J1100 PER 1MG) As Ordered ONE; +fentaNYL 100 MCG/2 ML INJECTION As Ordered ONE; +propofoL 200 MG/20 ML VIAL As Ordered ONE
[2021-10-26] MEDS ORDERED: ONDA-83 (11:40)
[2021-10-26] MEDS ORDERED: LIDOCAINE 2% 5ML JELLY UROJET As Ordered ONE (12:01)
[2021-10-26 12:40] VITALS: BP 108/74
== END 2021-10-26 12:58 | disposition home or self-care (01) ==
LOC: M SDC 11:24
PROVIDERS: ATTEND Urology
DX: Z46.6 Encounter for fitting and adjustment of urinary device (principal); J45.909 Unspecified asthma, uncomplicated; K21.9 Gastro-esophageal reflux disease without esophagitis; F41.9 Anxiety disorder, unspecified; Z79.899 Other long term (current) drug therapy
CPT/HCPCS: 52310; 81025; J0690; J1100; J2250; J2405; J3010